=== PATIENT | female | born 1985 | race Caucasian/White ===

== ENCOUNTER 2016-05-24 19:17 | Inpatient (IN) | payer OTHER ==
[~2016-05-24] VITALS: Ht 172.7 cm; Wt 56.7 kg
[~2016-05-24 19:17] MED LIST: Bupropion Hcl PO; ETHI1TAB24 PO; SPIR50TA PO; TOPI100T11 PO; TRAZ-144 PO
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
[2016-05-26] MEDS ORDERED: LOPERAMIDE HCL 2 MG CAPSULE PO PRN ×2 (03:00)
[2016-05-26] MEDS ORDERED: MAG HYDROX/AL HYDROX/SIMETH 30 ML LIQUID UDC PO PRN (03:00)
[2016-05-26] MEDS ORDERED: BUPRENORPHINE HCL 2 MG TAB.SUBL SL PRN (03:00)
[2016-05-26] MEDS ORDERED: ACETAMINOPHEN 325 MG TABLET PO PRN (03:00)
[2016-05-26] MEDS ORDERED: MAGNESIUM HYDROXIDE 30 ML LIQUID UDC ONE (03:09)
[2016-05-26] MEDS ORDERED: BUPRENORPHINE HCL 2 MG TAB.SUBL SL ONE (03:09)
[2016-05-26] MEDS ORDERED: ONDANSETRON ODT 4 MG TAB.RAPDIS ONE (03:10)
[2016-05-26] MEDS ORDERED: IBUPROFEN 400 MG TABLET ONE ×2 (03:10→06:04)
[2016-05-26] MEDS: MAGNESIUM HYDROXIDE 30 ML LIQUID UDC PO PRN ×2 (03:16→22:59)
[2016-05-26] MEDS: CLONIDINE HCL 0.1 MG TABLET PO PRN (03:16)
[2016-05-26] MEDS: ONDANSETRON ODT 4 MG TAB.RAPDIS SL PRN (03:16)
--- NOTE | 2016-05-26 03:16 | NUR ---
PRN administration Patient complains of anxiety, constipation & nausea. Patient reported that her last bowel mvoement was a week ago. No episode of vomiting noted. Vitals WNL. PRN Clonidine, MOM, Zofran given as ordered. Will reassess for effectiveness of medicaiton
[2016-05-26] MEDS ORDERED: CLONIDINE HCL 0.1 MG TABLET ONE (03:20)
[2016-05-26 04:00] VITALS: BP 97/68
--- NOTE | 2016-05-26 04:16 | NUR ---
PRN Reassessment Patient verbalized improved nasuea and verbalized decrease in anxiety. PRn medication effective. Will continue to monitor bowel movement.
[2016-05-26 04:47] LABS: BASOPHILS % (AUTO) 0.5 % (0.0-2.0); EOSINOPHILS # (AUTO) 0.1 K/uL (0.0-0.7); EOSINOPHILS % (AUTO) 0.9 % (0.0-7.0); HEMATOCRIT 40.3 % (37.0-47.0); HEMOGLOBIN 14.2 g/dL (12.0-16.0); LYMPHOCYTES % (AUTO) 49.5 % (20.5-51.5); MEAN CORPUSCULAR HEMOGLOBIN 32.2 uug (27.0-31.0); MEAN CORPUSCULAR HGB CONC 35 g/dL (32.0-37.0); MEAN CORPUSCULAR VOLUME 91.4 fL (81.0-99.0); MONOCYTES # (AUTO) 0.5 K/uL (0.1-1.30); MONOCYTES % (AUTO) 6.2 % (0.0-11.0); NEUTROPHILS # (AUTO) 3.5 K/uL (1.8-8.9); NEUTROPHILS % (AUTO) 42.9 % (38.5-71.5); PLATELET COUNT (AUTO) 260 K/uL (150-450); RED BLOOD CELL COUNT(AUTO) 4.41 MIL/uL (4.20-5.40); RED CELL DISTRIBUTION WIDTH 12.1 % (11.5-14.5); WHITE BLOOD COUNT (AUTO) 8.1 K/uL (4.0-11.2)
[2016-05-26 05:00] LABS: ALBUMIN 3.4 g/dL (3.4-5.0); BILIRUBIN,TOTAL 0.2 mg/dL (0.2-1.0); CALCIUM 8.3 mg/dL (8.5-10.1); CREATININE 0.8 mg/dL (0.6-1.3); MAGNESIUM 1.3 mg/dL (1.8-2.4); POTASSIUM 3.2 mmol/L (3.5-5.1); TOTAL PROTEIN, SERUM 6.7 g/dL (6.4-8.2)
[2016-05-26 05:08] LABS: THYROID STIMULATING HORMONE 1.895 mIU/mL (0.358-3.740)
[2016-05-26 05:21] LABS: HIV-1 p24 ANTIGEN NON REACTIVE (NONREACTIVE); HIV-1/2 ANTIBODY NON REACTIVE (NONREACTIVE)
--- NOTE | 2016-05-26 06:00 | NUR ---
Urine collected Urine for drug screen collected. Pt able to void clear yellow urine freely with no problems.
[2016-05-26] MEDS ORDERED: METHOCARBAMOL 750 MG TABLET ONE (06:04)
[2016-05-26] MEDS: METHOCARBAMOL 750 MG TABLET PO PRN (06:12)
[2016-05-26] MEDS: IBUPROFEN 400 MG TABLET PO PRN ×2 (06:12→17:41)
--- NOTE | 2016-05-26 06:12 | NUR ---
PRN Administration Patient complaine of 7/10 jaw pain, body aches & mild headache. PRN Robaxin & Motrin given as ordered. Will continue to monitor.
[2016-05-26] MEDS ORDERED: SPIR50TA3 PO (06:34)
[2016-05-26] MEDS ORDERED: LISD20CA PO (06:34)
[2016-05-26] MEDS ORDERED: TOPI100T11 PO (06:34)
[2016-05-26 06:42] LABS: *AMPHETAMINE, URINE NEGATIVE (NEGATIVE); *BARBITURATE, URINE NEGATIVE (NEGATIVE); *CANNABINOID, URINE POSITIVE (NEGATIVE); *COCCAINE, URINE NEGATIVE (NEGATIVE); *OPIATE, URINE NEGATIVE (NEGATIVE); *PHENCYCLIDINE SCREEN,URINE NEGATIVE (NEGATIVE)
--- NOTE | 2016-05-26 07:12 | NUR ---
PRN Reassessment Patient verbalized slight relief from body aches and headache. Patient lying in bed and not in any s/s of distress. Will continue to monitor patient.
--- NOTE | 2016-05-26 07:45 | NUR ---
END of shit note: Patient is a 30 y/o female admitted for Opiate dependence. Patient is on a soft diet with multiple allergies noted. Full Code status. Patient was given PRn Clonidine for anxiety, MOM for constipation, Zofran for nausea, Motrin for headache & robaxin for body aches and were effective. During assessment, pt was having inconsistencies of reported allergies. Will followup with Dr. Rocha. Initial COWS is 10. Last COWS is 8. Pt remained stable and vitals WNL. Pt was having trouble sleeping and slept for 1 hour. Pt consumed 355ml of fluids. Voided 1x with no bowel movement noted. Safety precautions are in place. will continue to monitor.
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
[2016-05-26 08:00] VITALS: BP 112/66
[2016-05-26] MEDS: MULTIVITAMINS,THERAPEUTIC TABLET PO SCH (08:45)
[2016-05-26] MEDS ORDERED: LORAZEPAM 1 MG TABLET PO PRN ×2 (10:15)
[2016-05-26] MEDS ORDERED: LORAZEPAM 2 MG/1 ML VIAL IM PRN (10:15)
[2016-05-26] MEDS ORDERED: POTASSIUM CHLORIDE 10 MEQ CAPSULE.SA PO ONE (10:15)
[2016-05-26 12:00] VITALS: BP 109/69
[2016-05-26] MEDS: LORAZEPAM 1 MG TABLET PO SCH ×3 (12:50→21:11)
[2016-05-26] MEDS: BUPRENORPHINE HCL 2 MG TAB.SUBL SL SCH ×3 (12:51→21:12)
[2016-05-26] MEDS: TOPIRAMATE 100 MG TABLET PO SCH (12:51)
[2016-05-26] MEDS: buPROPion XL 150 MG TAB.SR.24H PO SCH (12:51)
[2016-05-26] MEDS ORDERED: MAGNESIUM OXIDE 400 MG TABLET PO ONE (14:30)
[2016-05-26] MEDS ORDERED: ASPIRIN/ACETAMINOPHEN/CAFFEINE TABLET PO PRN (15:45)
[2016-05-26 16:00] VITALS: BP 124/76
[2016-05-26] MEDS ORDERED: PATIENT MAY USE OWN MED- MD OK PO SCH (17:00)
[2016-05-26] MEDS: SPIRONOLACTONE 50 MG TABLET PO SCH (17:36)
--- NOTE | 2016-05-26 17:41 | NUR ---
PRN MEDICATION Pt c/o toothache/ jaw pain rating it 5/10 requested something for relief, non-pharmacological techniques interventions provided x3 and were not effective. PRN Motrin 400mg administered PO, educated pt about s/e of medication and when to contact nurse. all needs met, all safety measures in place, will continue to monitor.
[2016-05-26] MEDS ORDERED: TRAZODONE 50 MG TABLET PO SCH (18:00)
--- NOTE | 2016-05-26 18:41 | NUR ---
PRN REASSESSMENT Medication effective, pt reported a decrease in pain to 1/10, all needs met all safety measures in place.
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
[2016-05-26 19:31] LABS: *URINE HCG, QUAL NEGATIVE (NEGATIVE)
[2016-05-26 20:00] VITALS: BP 127/82
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
[2016-05-26] MEDS: DICYCLOMINE HCL 20 MG TABLET PO PRN (21:11)
--- NOTE | 2016-05-26 21:11 | NUR ---
PRN Bentyl Pt complains of stomach cramps. Administered PRN Bentyl as ordered. Will continue to monitor.
[2016-05-26] MEDS: KETOROLAC TROMETHAMINE 30 MG INJ IM PRN (22:59)
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
[2016-05-27] VITALS: BP 117/84
--- NOTE | 2016-05-27 | NUR ---
Reassessment: Pt states that her jaw pain is now 3/10. PRN Toradol effective AEB decrease in pain from 8/10 to 3/10. Will continue to monitor.
[2016-05-27 04:00] VITALS: BP 122/79
[2016-05-27] MEDS: IBUPROFEN 400 MG TABLET PO PRN (04:44)
--- NOTE | 2016-05-27 04:44 | NUR ---
PRN Motrin: Pt complains of jaw pain. Pt rates pain 5/10. Administered PRN Motrin as ordered. Will continue to monitor.
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
--- NOTE | 2016-05-27 07:45 | NUR ---
START OF SHIFT NOTE: Report received from trains dispatcher supervisor nurse. Pt is a 30 yo female admitted on 05/26/16 for ETOH, opiates, and benzodiazepines dependence. Pt is on a 5 day Subutex and 5 day Valium tapers. Tolerating well. Pt is alert and oriented X4. Color good, skin warm and dry. Respirations even and unlabored. Safety precautions observed. calll= light within reach. Will continue to monitor.
[2016-05-27 08:00] VITALS: BP 124/88
[2016-05-27 08:19] LABS: CALCIUM 9.2 mg/dL (8.5-10.1); CREATININE 0.8 mg/dL (0.6-1.3); POTASSIUM 4.2 mmol/L (3.5-5.1)
[2016-05-27] MEDS ORDERED: TUBERCULIN,PURIF.PROT.DERIV. 5 TU/0.1 ML TEST ID ONE (09:00)
--- NOTE | 2016-05-27 09:00 | NUR ---
VSS CIWA 9 COWS 8 c/o anxiety, sweating and tremors. TB test administered LFA
[2016-05-27] MEDS: LORAZEPAM 1 MG TABLET PO SCH ×3 (09:26→21:12)
[2016-05-27] MEDS: buPROPion XL 150 MG TAB.SR.24H PO SCH (09:26)
[2016-05-27] MEDS: GABAPENTIN 300 MG CAPSULE PO SCH ×3 (09:26→21:12)
[2016-05-27] MEDS: FOLIC ACID 1 MG TABLET PO SCH (09:26)
[2016-05-27] MEDS: MULTIVITAMINS,THERAPEUTIC TABLET PO SCH ×2 (09:26→09:36)
[2016-05-27] MEDS: TOPIRAMATE 100 MG TABLET PO SCH (09:27)
[2016-05-27] MEDS: THIAMINE HCL 100 MG TABLET PO SCH (09:27)
[2016-05-27] MEDS: BUPRENORPHINE HCL 2 MG TAB.SUBL SL SCH ×3 (09:27→21:13)
[2016-05-27] MEDS: PATIENT MAY USE OWN MED- MD OK PO SCH (09:28)
[2016-05-27] MEDS: SPIRONOLACTONE 50 MG TABLET PO SCH ×2 (09:31→16:56)
[2016-05-27 12:57] VITALS: BP 116/80
[2016-05-27] MEDS: KETOROLAC TROMETHAMINE 30 MG INJ IM PRN (15:09)
--- NOTE | 2016-05-27 15:09 | NUR ---
VSS Pt c/o jaw pain / Toradol 30mg IM prn given
--- NOTE | 2016-05-27 16:00 | NUR ---
Pt states jaw pain improved after Toradol prn. Pain 4/10
[2016-05-27] MEDS: METHOCARBAMOL 750 MG TABLET PO PRN (17:00)
--- NOTE | 2016-05-27 17:00 | NUR ---
Robaxin 750mg po prn given
--- NOTE | 2016-05-27 18:00 | NUR ---
Pt feels improved after Robaxin prn
[2016-05-27 18:39] VITALS: BP 116/80
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
[2016-05-27 20:00] VITALS: BP 133/90
--- NOTE | 2016-05-27 20:00 | NUR ---
Start of Shift Patient is a 30-year old, female, admitted for ETOH, Opiates, and Benzodiazepines dependence. Pt is on a 5 day Subutex and 5 day Valium tapers, started 05/26/2016. Patient is tolerating tapers well. Pt is AAOx4, no SOB nor anxiety noted. Pt is ambulatory with steady gait and with no skin issues. Fall, universal and safety prec implemented. Call light within reach. Kept pt warm, dry and comfortable. COWS=6, CIWA=4. Will monitor.
[2016-05-28] VITALS (7 sets, daily range): BP systolic 107–148; BP diastolic 71–112
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
--- NOTE | 2016-05-28 07:18 | NUR ---
End of Shift Patient is a 30-year old, female, admitted for ETOH, Opiates, and Benzodiazepines dependence. Pt is on a 5 day Subutex and 5 day Valium tapers, started 05/26/2016. Patient is tolerating tapers well. Pt is AAOx4, no SOB nor anxiety noted. Pt is ambulatory with steady gait and with no skin issues. Fall, universal and safety prec implemented. Call light within reach. Kept pt warm, dry and comfortable. COWS=4, CIWA=3, slept for 5 hours. Endorsed to AM shift nurse for continuity of care.
[2016-05-28] MEDS ORDERED: FAMOTIDINE 20 MG TABLET PO SCH (09:00)
[2016-05-28] MEDS: MULTIVITAMINS,THERAPEUTIC TABLET PO SCH ×2 (09:00→09:11)
[2016-05-28] MEDS ORDERED: BUPRENORPHINE HCL 2 MG TAB.SUBL SL SCH (09:00)
[2016-05-28] MEDS: PATIENT MAY USE OWN MED- MD OK PO SCH (09:10)
[2016-05-28] MEDS: TOPIRAMATE 100 MG TABLET PO SCH (09:11)
[2016-05-28] MEDS: THIAMINE HCL 100 MG TABLET PO SCH (09:11)
[2016-05-28] MEDS: buPROPion XL 150 MG TAB.SR.24H PO SCH (09:11)
[2016-05-28] MEDS: SPIRONOLACTONE 50 MG TABLET PO SCH ×2 (09:11→16:00)
[2016-05-28] MEDS: GABAPENTIN 300 MG CAPSULE PO SCH ×2 (09:11→16:00)
[2016-05-28] MEDS: FOLIC ACID 1 MG TABLET PO SCH (09:11)
[2016-05-28] MEDS: LORAZEPAM 1 MG TABLET PO SCH ×4 (09:17→20:29)
[2016-05-28] MEDS: ONDANSETRON ODT 4 MG TAB.RAPDIS SL PRN (12:27)
[2016-05-28] MEDS: KETOROLAC TROMETHAMINE 30 MG INJ IM PRN (12:27)
[2016-05-28] MEDS ORDERED: ONDANSETRON 4 MG/2 ML VIAL IV PRN (12:45)
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
[2016-05-28] MEDS ORDERED: PNEUMOCOCCAL 23-VAL P-SAC VAC 0.5 ML VIAL IM ONE (13:00)
--- NOTE | 2016-05-28 13:00 | NUR ---
PNA Vaccine Non-Administration Pt refused the PNA vaccine.
--- NOTE | 2016-05-28 13:30 | NUR ---
Reassessment Pt is in room asleep with a nap with HOB semi-fowlers; no non-verbal clues of nausea or pain present at this time so Toradol and Zofran is effective. Will cont. to monitor the pt.
[2016-05-28] MEDS: PANTOPRAZOLE SODIUM 40 MG VIAL IV SCH (14:26)
[2016-05-28] MEDS: IV D5 1/2 NS 1000 ML 1,000 ML IV SCH ×2 (14:33→21:05)
[2016-05-28] MEDS: DICYCLOMINE HCL 20 MG TABLET PO PRN (16:00)
[2016-05-28] MEDS: BUPRENORPHINE HCL 2 MG TAB.SUBL SL SCH ×2 (16:00→20:29)
[2016-05-28] MEDS: DOCUSATE SODIUM 250 MG CAPSULE PO PRN (16:00)
--- NOTE | 2016-05-28 16:30 | NUR ---
V/S-Elevated BP 1600H V/S: T. 98.1 HR 87 RR 18 BP 148/112 SpO2 98% RA 0/10 pain COWS 5 CIWA 5; Scheduled medications given and reassessment at 1630 of BP 119/80 and HR 63 after medication administration. Will cont. to monitor the pt.
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
[2016-05-28] MEDS: MIRALAX 17 GM POWD.PACK PO PRN (20:59)
--- NOTE | 2016-05-28 20:59 | NUR ---
PRN Administration Pt reports constipation, requested aid. Miralax 17 gm PRN administered. Pt reports itchiness and discomfort in eyes. Naphcon-A Opht drops administered. Safety measures in place, will continue to monitor.
[2016-05-28] MEDS ORDERED: GABAPENTIN 300 MG CAPSULE PO SCH (21:00)
[2016-05-28] MEDS: NAPHAZOLINE/PHENIR OPHT DROP 15 ML BOTTLE EACHEYE PRN (21:01)
--- NOTE | 2016-05-28 21:05 | NUR ---
IVF New bag of D5 1/2 NS started, running at 125 cc/hr. IV site intact, patent/flushing well. Safety measures in place, Will continue to monitor.
--- NOTE | 2016-05-28 22:00 | NUR ---
PRN Upon reassessment, no reports of bowel movement. will continue to monitor effectiveness of Miralax. Pt states relief in itchiness in eyes. eye drops effective. Safety measures in place, Will continue to monitor. Addendum: 05/28/16 at 2342 by LYUBOV SERVIN RN PRN REASSESSMENT
[2016-05-29] VITALS: BP 111/69
--- NOTE | 2016-05-29 | NUR ---
Vital Signs BP 111/69, Pulse 81, SpO2 98%, respirations 14, temp 97.7, no reports of pain. IRVIN/CIWA deferred d/t pt sleeping, to assess while pt is awake as ordered. Safety measures in place, Will continue to monitor.
[2016-05-29] MEDS: KETOROLAC TROMETHAMINE 30 MG INJ IM PRN ×2 (01:55→08:51)
--- NOTE | 2016-05-29 01:55 | NUR ---
PRN Administration Upon awakening, pt reported aching pain in right lower jaw rated 9/10. Pt requested relief. Toradol injection 30mg/1ml administered. Safety measures in place, will continue to monitor.
--- NOTE | 2016-05-29 02:55 | NUR ---
PRN Reassessment Upon reassessment, of Toradol, pt is sleeping, no verbal cues of pain verbalized/noted. Safety measures in place, Will continue to monitor.
[2016-05-29 04:00] VITALS: BP 94/67
--- NOTE | 2016-05-29 04:00 | NUR ---
Vital Signs BP 94/67, Pulse 74, SpO2 97%, respirations 14, temp 98, no reports of pain. COWS/CIWA deferred d/t pt sleeping, to assess while pt is awake as ordered. Safety measures in place, Will continue to monitor.
[2016-05-29] MEDS: IV D5 1/2 NS 1000 ML 1,000 ML IV SCH (05:06)
--- NOTE | 2016-05-29 05:06 | NUR ---
IVF New bag of D5 1/2 NS started, running at 125 cc/hr. IV site intact, patent/flushing well. Safety measures in place, Will continue to monitor.
[2016-05-29 05:22] LABS: HEPATITIS B CORE AB, IgM Negative (Negative); HEPATITIS B SURFACE AG Negative (Negative)
[2016-05-29] MEDS: METHOCARBAMOL 750 MG TABLET PO PRN (05:45)
--- NOTE | 2016-05-29 05:45 | NUR ---
PRN Robaxin & Reassessment of Toradol Upon awakening, pt reported muscle aches, requested relief. Robaxin 750mg PRN administered. Pt verbalizes pain in jaw 3/10 and subsiding pain - Toradol effective. Safety measures in place, will continue to monitor.
--- NOTE | 2016-05-29 06:45 | NUR ---
PRN Robaxin Reassessment Upon reassessment of Robaxin, pt states a decrease in muscle aches. Safety measures in place, Will continue to monitor.
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
[2016-05-29 08:00] VITALS: BP 110/68
[2016-05-29] MEDS: BUPRENORPHINE HCL 2 MG TAB.SUBL SL SCH ×3 (08:32→20:58)
[2016-05-29] MEDS: THIAMINE HCL 100 MG TABLET PO SCH (08:32)
[2016-05-29] MEDS: PATIENT MAY USE OWN MED- MD OK PO SCH (08:32)
[2016-05-29] MEDS: SPIRONOLACTONE 50 MG TABLET PO SCH ×2 (08:32→16:06)
[2016-05-29] MEDS: buPROPion XL 150 MG TAB.SR.24H PO SCH (08:32)
[2016-05-29] MEDS: GABAPENTIN 300 MG CAPSULE PO SCH ×3 (08:32→20:58)
[2016-05-29] MEDS: MULTIVITAMINS,THERAPEUTIC TABLET PO SCH ×2 (08:33→08:34)
[2016-05-29] MEDS: TOPIRAMATE 100 MG TABLET PO SCH (08:33)
[2016-05-29] MEDS: LORAZEPAM 1 MG TABLET PO SCH ×3 (08:33→20:58)
[2016-05-29] MEDS: PANTOPRAZOLE SODIUM 40 MG VIAL IV SCH (08:33)
[2016-05-29] MEDS: FOLIC ACID 1 MG TABLET PO SCH (08:33)
[2016-05-29] MEDS: NAPHAZOLINE/PHENIR OPHT DROP 15 ML BOTTLE EACHEYE PRN (08:44)
[2016-05-29] MEDS: DOCUSATE SODIUM 250 MG CAPSULE PO PRN ×2 (08:51→16:14)
[2016-05-29] MEDS: CLONIDINE HCL 0.1 MG TABLET PO PRN (08:51)
--- NOTE | 2016-05-29 08:55 | NUR ---
PRN Medication Administration Pt c/o burning eyes, jaw and generalized pain 09/27 and is very anxious with restlessness, crying, irritability, agitation and pacing, HR 108; PRN Naphcon-A eye gtts, Toradol 30mg IM, and Clonidine 0.1mg given with 0900H scheduled medications. Will reassess in 1H. Addendum: 05/29/16 at 1659 by CHRISTEL MILES RN PRN Colace 250mg given also since pt states that she has not had a BM in 3 days.
--- NOTE | 2016-05-29 10:00 | NUR ---
Reassessment Pt is in room getting getting ready to take a shower, decreased anxiety and agitations with no crying present and pt denies pain 0/10 and no burning and itchiness in OU; PRN Naphcon-A, Toradol and Clonidine are effective. Will cont. to monitor the pt.
[2016-05-29 12:00] VITALS: BP 131/77
[2016-05-29] MEDS ORDERED: BUPRENORPHINE HCL 2 MG TAB.SUBL SL ONE (13:00)
[2016-05-29 16:00] VITALS: BP 118/87
[2016-05-29] MEDS: MIRALAX 17 GM POWD.PACK PO PRN (16:14)
--- NOTE | 2016-05-29 16:18 | NUR ---
PRN Medication Administration Pt c/o no BM in more than 3 days; PRN Miralax with another dose of PRN Colace 250mg given as ordered. Will cont. to monitor the pt.
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
[2016-05-29 20:00] VITALS: BP 119/85
--- NOTE | 2016-05-29 20:00 | NUR ---
Start of Shift Pt is a 30 year old female admitted for Opiate/Benzo/ETOH dependence, placed on 5 day Ativan and 5 day Subutex taper. Allergies to PCN and Trazodone, soft diet, full code. PMH: ADHD, anxiety, depression, PTSD, jaw fracture and polycystic ovarian syndrome. Pt has 22g SL in left forearm - site intact patent/flushing well. IVF D5 1/2 NS running at 125 cc/hr. Upon assessment, pt reports anxiety, flushing/chills, muscle/joint aches, skin flushed/clammy, respirations unlabored, denies SOB/chest pain. Will administered medications. BP 119/85, pulse 63, SpO2 100%, respirations 14, temp 98. Safety measures in place, will continue to monitor.
--- NOTE | 2016-05-29 20:30 | NUR ---
IVF completed, removed IV from left forearm, site cleansed and bandaged. Pt needs met, safety measures in place, will continue to monitor.
[2016-05-30] VITALS: BP 121/73
[2016-05-30] MEDS: CALCIUM CARBONATE 500 MG TAB.CHEW PO PRN (01:17)
--- NOTE | 2016-05-30 01:17 | NUR ---
PRN Administration Tums 500mg PRN administered for stomach upset Robaxin 750mg PRN administered for reports of muscle aches. Safety measures in place, Will continue to monitor.
[2016-05-30] MEDS: METHOCARBAMOL 750 MG TABLET PO PRN ×2 (01:20→14:28)
--- NOTE | 2016-05-30 02:45 | NUR ---
Behavioral Note During shift, while doing hourly rounds, Pt has been noted to be in room in bed with lights on, TV on with sound on full, reading and writing in notebook. Upon offering sleeping AID, pt reported she did not want Benadryl and only wanted Toradol for pain, which was administered. Pt continuously REFUSED Benadryl risk and benefits explained, medication offered 3 times. Non-pharmacological methods of turning TV off, turning lights off encouraged to pt. However, pt continued to behave in same manner with keeping lights on and TV on.
[2016-05-30] MEDS: KETOROLAC TROMETHAMINE 30 MG INJ IM PRN ×2 (02:55→20:40)
--- NOTE | 2016-05-30 02:55 | NUR ---
PRN Reassessment/Administration Pt reports relief of stomach upset. Reports she cannot fall asleep d/t the aching/pulling pain 9/10 in her shoulders and knees. Toradol injection 30mg/1ml PRN administered. Safety measures in place, Will continue to monitor.
[2016-05-30 04:00] VITALS: BP 109/78
--- NOTE | 2016-05-30 04:00 | NUR ---
Vital Signs BP 109/78, pulse 87, respirations 14, SpO2 100%, temp 97.9, no reports of pain. COWS/CIWA assessment deferred d/t pt sleeping, to assess while pt is awake as ordered. Safety measures in place, Will continue to monitor.
[2016-05-30] MEDS: CLONIDINE HCL 0.1 MG TABLET PO PRN ×2 (05:46→23:08)
--- NOTE | 2016-05-30 05:46 | NUR ---
Behavioral Note At 0545, Pt reported I have been trying to sleep and I feel anxious, I cant fall asleep. Explained to pt that Benadryl cannot be administered at this time due to the morning hour. In response, Pt reported that it was not offered to her, even though Benadryl was offered x3 with risks/benefits explained. Clonidine 0.1mg PRN administered for Anxiety. Pt refuses to turn off lights and keeps the TV on. Pt continues to behave in the same manner.
--- NOTE | 2016-05-30 06:46 | NUR ---
Clonidine Reassessment Pt is in bed with eyes closed, no anxiety noted. Safety measures in place, Will continue to monitor.
[2016-05-30] MEDS ORDERED: PANTOPRAZOLE SODIUM 40 MG TABLET.DR PO SCH (07:00)
--- NOTE | 2016-05-30 07:00 | NUR ---
End of Shift Pt is a 30 year old female admitted for Opiate/Benzo/ETOH dependence, placed on 5 day Ativan and 5 day Subutex taper. Allergies to PCN and Trazodone, soft diet, full code. PMH: ADHD, anxiety, depression, PTSD, jaw fracture and polycystic ovarian syndrome. During shift pt presented with anxiety, flushing/chills, muscle/joint aches, skin flushed/clammy scheduled taper medications administered, COWS 5 and CIWA 4. IVF completed, removed IV from left forearm site cleaned and bandaged. At 0117 Tums 500mg PRN administered for stomach upset, effective. Administered Robaxin 750mg PRN for muscle aches ineffective. Pt reported she was unable fall asleep d/t the aching/pulling pain 9/10 in her shoulders and knees. Toradol 30mg/1ml PRN administered, effective for pain. Clonidine administered for anxiety, noted in behavioral note. Pt slept for 5 hours, intake of 1700 ml PO and void x2. VS stable, Safety measures in place, Endorsed to day shift nurse.
--- NOTE | 2016-05-30 07:45 | NUR ---
START OF SHIFT NOTE Received report from night nurse, a 30 year old female admitted for Opiate/Benzo/ETOH dependence. Allergies to PCN and Trazodone, soft diet, full code. Pt reported PMH: ADHD, anxiety, depression, PTSD, jaw fracture and polycystic ovarian syndrome. Pt cont on 5 day Ativan and 5 day Subutex taper. Pt received Tums 500mg for stomach upset,Robaxin 750mg PRN for muscle aches ineffective per night nurse then administered Toradol 30mg/1ml PRN administered, effective for pain. Clonidine for anxiety,effective per night nurse. Pt slept for 5 hours, Last CIWA-4, COWS-5. Received pt alert awake oriented x4 in stable condition. Pt came to nursing station and asked for her contact lenses. Contact lenses provided to the pt. Pt did not report any pain or discomfort at this time. Safety measures in place. Will cont to provide safe and hazard free environment.
[2016-05-30 08:00] VITALS: BP 113/77
[2016-05-30] MEDS: LORAZEPAM 1 MG TABLET PO SCH ×2 (08:48→20:39)
[2016-05-30] MEDS: buPROPion XL 150 MG TAB.SR.24H PO SCH (08:48)
[2016-05-30] MEDS: TOPIRAMATE 100 MG TABLET PO SCH (08:48)
[2016-05-30] MEDS: THIAMINE HCL 100 MG TABLET PO SCH (08:48)
[2016-05-30] MEDS: BUPRENORPHINE HCL 2 MG TAB.SUBL SL SCH ×2 (08:48→20:38)
[2016-05-30] MEDS: MULTIVITAMINS,THERAPEUTIC TABLET PO SCH ×2 (08:48→09:40)
[2016-05-30] MEDS: GABAPENTIN 300 MG CAPSULE PO SCH ×2 (08:48→14:19)
[2016-05-30] MEDS: FOLIC ACID 1 MG TABLET PO SCH (08:48)
[2016-05-30] MEDS: SPIRONOLACTONE 50 MG TABLET PO SCH ×2 (08:58→16:31)
[2016-05-30] MEDS: PATIENT MAY USE OWN MED- MD OK PO SCH (08:59)
[2016-05-30] MEDS: PANTOPRAZOLE SODIUM 40 MG TABLET.DR PO SCH (10:01)
[2016-05-30 12:00] VITALS: BP 102/74
[2016-05-30] MEDS: DICYCLOMINE HCL 20 MG TABLET PO PRN (14:28)
--- NOTE | 2016-05-30 14:28 | NUR ---
PRN MEDS Pt is c/o of stomach cramps/muscle aches 5/10, non pharmacological intervention ineffective. Administered PRN Bentyl 20mg Po 1 tab/Robaxin 750mg Po 1 tab as ordered. Will cont to monitor and reassess the pt.
--- NOTE | 2016-05-30 15:28 | NUR ---
REASSESSMENT upon reassessment pt reported medication effective stomach cramps subside.
--- NOTE | 2016-05-30 15:35 | NUR ---
D/C 1:1 Pt's 1:1 supervision R/T safety precautions was discontinued after reassessing the pt, Pt stated " I am okay and I can walk fine". Pt ambulates independently with steady gait. Pt denies any feeling of fear. aware.
[2016-05-30 16:00] VITALS: BP 110/68
--- NOTE | 2016-05-30 16:13 | NUR ---
CONSULT ORDER PLACED FOR SOFT FOOD PREFERENCES, RECENT JAW FRACTURE/DISLOCATION SPOKE TO THE PATIENT, PT STATE THAT HAVING DIFFICULTIES WITH CURRENT TEXTURE, OFFER MSOFT(CHOPPED),PATIENT AGREES, SPOKE TO THE NURSE AND REC DOWNGRADE DIET TO MSOFT FOOD PREFERENCES OBTAINED , ASSIST PATIENT ON MENU SELECTION PT WAS RECEIVING BOOST TID, STATES DISLIKE BOOST, REC D/C TWO AND WILL SEND 1 BOOST WITH DINNER. WILL MONITOR PO INTAKE Addendum: 05/30/16 at [address] Amended: Links added.
--- NOTE | 2016-05-30 19:00 | NUR ---
PT COMMUNICATION Pt reported having x4 episode of diarrhea, offered Imodium pt refused states "I do not want to mess with my stomach". Risk and benefits explained. Safety measures in place. Pt in stable condition alert oriented x4.
--- NOTE | 2016-05-30 19:10 | NUR ---
EMESIS x1 Pt observed with brushing teeth and tongue and then observed with vomiting, offered PRN Zofran, pt refused. Endorsed to night nurse to follow up. Safety measures in place.
--- NOTE | 2016-05-30 19:16 | NUR ---
END OF SHIFT NOTE Gave report to night nurse, 30 year old female admitted for Opiate/Benzo/ETOH dependence. Allergies to PCN and Trazodone, soft diet, full code. Pt reported PMH: ADHD, anxiety, depression, PTSD, jaw fracture and polycystic ovarian syndrome. Pt cont on 5 day Ativan and 5 day Subutex taper. Pt received PRN Robaxin and Bentyl with effectiveness. Pt attended groups and activities. Pt was seen by advertising assistant and diet change from soft diet to mechanical soft diet. Vital signs remain stable. Last CIWA 4 COWS 5. Pt reports with stuffy nose,agitation, anxiety, and chills. Fall and seizure precautions in place.pt endorsed to night nurse in stable condition.
--- NOTE | 2016-05-30 19:35 | NUR ---
Start of Shift Note: Report received from day shift nurse. Pt is a 30 yo female admitted on 05/26/16 for medically-supervised withdrawal from ETOH, opiates, and benzodiazepines. Pt reports drinking 1500mL vodka daily for 2 days, using 2gm IV heroin daily for one week, and Ativan 1mg daily. Pt has completed a 5-day Ativan taper and in on the last day of a 5-day Subutex taper. Last day shift COWS=5, CIWA=4. Pt is on a mechanical soft diet. Pt reports allergy to PCN and trazodone. Pt reports med hx: ADHD, anxiety, depression, PTSD, jaw fx s/p repair, and PCOS. Pt is at the nurses station at start of shift requesting medications. Pt attended half of one H&I group today. Pt noted to be resistant to non-pharmacological measures to alleviate anxiety and discomfort. Pt's complaints are out of proportion to objective s/s of withdrawal. Will reinforce teaching of coping skills. Will also reinforce importance of group attendance. Will continue to monitor.
[2016-05-30 20:00] VITALS: BP 107/68
[2016-05-30] MEDS: ONDANSETRON ODT 4 MG TAB.RAPDIS SL PRN (20:40)
--- NOTE | 2016-05-30 20:40 | NUR ---
PRN Toradol and PRN Zofran: Pt c/o severe jaw pain and rates pain 8/10. Pt noted to be able to eat almonds and a sandwich without difficulty. Administered PRN Toradol IM as ordered. Pt c/o nausea. Pt reports emesis x1 earlier in the day and refused medication at that time. Administered PRN Zofran as ordered. Will continue to monitor.
[2016-05-30] MEDS ORDERED: GABAPENTIN 300 MG CAPSULE PO SCH (21:00)
--- NOTE | 2016-05-30 21:40 | NUR ---
Reassessment: Pt reports that she is no longer nauseous and that her jaw pain is manageable. PRN Zofran and PRN Toradol effective. Encouraged fluids, crackers and other light foods to prevent recurrent episodes. Pt verbalizes understanding. Will continue to monitor.
[2016-05-30] MEDS: diphenhydrAMINE 50 MG CAPSULE PO PRN (23:08)
--- NOTE | 2016-05-30 23:08 | NUR ---
PRN Benadryl and Clonidine: Pt reports anxiety due to inability to sleep. Pt stated she also lost a contact lens which is making her uneasy. Pt requested medication to "calm her down" and help her go to sleep. BP 119/67, HR 88. Clonidine PRN given for anxiety and Benadryl PRN given for sleep. Will continue to monitor.
[2016-05-31] VITALS: BP 119/62
--- NOTE | 2016-05-31 00:10 | NUR ---
Reassessment: Pt is in bed with eyes closed. Respirations are even and unlabored. No s/s of acute distress noted. PRN Clonidine and PRN Benadryl effective AEB pt's ability to rest. Will continue to monitor.
--- NOTE | 2016-05-31 04:00 | NUR ---
Vitals Refused: Pt refuses ordered 04:00 v/s assessment. Pt educated on risks/benefits but still refuses. COWS/CIWA deferred at this time. All safety precautions are in place. Will continue to monitor. Addendum: 05/31/16 at 0518 by MICHAEL CHONG RN Amended: Links added.
--- NOTE | 2016-05-31 06:58 | NUR ---
End of Shift Note: Pt is a 30 yo female admitted to [facility] on 05/26/16 for medically-supervised withdrawal from ETOH, opiates, and benzodiazepines. Pt reports drinking 1500mL vodka daily for 2 days, using 2gm IV heroin daily for one week, and Ativan 1mg daily. Pt has completed a 5-day Ativan taper and has one remaining dose of a 5-day Subutex taper. Scheduled medication regime effectively managed s/s of withdrawal this shift, and COWS/CIWA scores decreased from 6/7 to 3/2. PRN Clonidine was given for anxiety and PRN Zofran for nausea. PRN Toradol was given for jaw pain and PRN Benadryl was given for insomnia. Pt is on a mechanical soft diet. Pt reports allergy to PCN and Trazodone. Pt reports med hx: ADHD, anxiety, depression, PTSD, jaw fx s/p repair, and PCOS. V/S stable throughout shift. Total fluid intake this shift: 855 ml; output: urine x 2 and BM x 0. Pt currently in bed and slept 10 hours this shift. Pt endorsed to day shift nurse.
[2016-05-31] MEDS: PANTOPRAZOLE SODIUM 40 MG TABLET.DR PO SCH (07:20)
--- NOTE | 2016-05-31 07:47 | NUR ---
BEGINNING OF SHIFT Patient endorsement report received from cuff stitcher nurse, all pertinent information discussed. Patient is a 30 year old female, full code, with no known allergies, On a soft diet. Patient with past medical history of: ADHD, anxiety, depression, PTSD, polycystic ovarian syndrome, Jaw fracture and Jaw surgeries (December). Patient with substance use history of: heroin IV 2 grams daily one week, ETOH 2-750ml of vodka daily for 2 days, Ativan 1mg/daily, Marijuana unknown amount. Patient was placed on a 5 day Ativan and Subutex taper as ordered. Patient is on day 5 of Subutex and completed Ativan taper. As per cuff stitcher patient received PRN: Toradol, Zofran, clonidine, and Benadryl, patient slept for 10 hours. Patient with last cow score of: 3 and ciwa score of: 2. Patient received awake, alert and oriented x4, educated patient regarding plan of care for the day and medication regimen with good verbal understanding. safety measures in place, call light kept with in reach, will continue to monitor.
[2016-05-31 08:29] VITALS: BP 136/97
[2016-05-31] MEDS: FOLIC ACID 1 MG TABLET PO SCH (08:31)
[2016-05-31] MEDS: buPROPion XL 150 MG TAB.SR.24H PO SCH (08:31)
[2016-05-31] MEDS: MULTIVITAMINS,THERAPEUTIC TABLET PO SCH ×2 (08:31)
[2016-05-31] MEDS: TOPIRAMATE 100 MG TABLET PO SCH (08:31)
[2016-05-31] MEDS: THIAMINE HCL 100 MG TABLET PO SCH (08:31)
[2016-05-31] MEDS: PATIENT MAY USE OWN MED- MD OK PO SCH (08:32)
[2016-05-31] MEDS: SPIRONOLACTONE 50 MG TABLET PO SCH ×2 (08:32→16:33)
[2016-05-31] MEDS: KETOROLAC TROMETHAMINE 30 MG INJ IM PRN ×2 (08:33→22:14)
--- NOTE | 2016-05-31 08:37 | NUR ---
PRN TORADOL Patient c/o pain 8/10 to jaw, provided with non pharmacological intervention with no relief, patient administered Toradol injection as ordered, will monitor effectiveness.
[2016-05-31] MEDS ORDERED: GABAPENTIN 300 MG CAPSULE PO SCH (09:00)
[2016-05-31] MEDS ORDERED: BUPRENORPHINE HCL 2 MG TAB.SUBL SL SCH (09:00)
--- NOTE | 2016-05-31 09:37 | NUR ---
TORADOL REASSESSMENT Patient reports medication with relief, current pain level 0/10, will continue to monitor.
[2016-05-31] MEDS: METHOCARBAMOL 750 MG TABLET PO PRN (14:32)
[2016-05-31] MEDS: DICYCLOMINE HCL 20 MG TABLET PO SCH ×2 (14:32→20:23)
[2016-05-31] MEDS: ONDANSETRON ODT 4 MG TAB.RAPDIS SL PRN ×2 (14:32→20:47)
[2016-05-31] MEDS: GABAPENTIN 300 MG CAPSULE PO SCH ×2 (14:32→20:23)
[2016-05-31] MEDS: IBUPROFEN 400 MG TABLET PO PRN (14:32)
--- NOTE | 2016-05-31 14:32 | NUR ---
PRN MOTRIN/ZOFRAN/ROBAXIN Patient reports increase in nausea, no vomiting noted. patient also reports pain to jaw area 6/10 and muscle aches. Patient administered Motrin/Zofran and Robaxin as ordered, will monitor effectiveness.
[2016-05-31 14:35] VITALS: BP 98/71
[2016-05-31] MEDS ORDERED: BUPRENORPHINE HCL 2 MG TAB.SUBL SL ONE (15:00)
--- NOTE | 2016-05-31 15:32 | NUR ---
MOTRIN/ZOFRAN/ROBAXIN REASSESSMENT Patient reports medication effective, current pain level 0/10, decrease in nausea and no complains of muscle aches, will continue to monitor closely.
[2016-05-31 17:19] VITALS: BP 113/79
--- NOTE | 2016-05-31 19:13 | NUR ---
END OF SHIFT Patient alert and oriented x4, vital signs were stable during shift, patient compliant with therapeutic plan of care. Patient with admitting Dx: opiate/etoh dependence, 0900 patient presented with: c/o chills, mild bone and joint aches, mild anxiety and mild agitation with cow score of: 3 and ciwa score of: 2; 1300 assessment patient presented with: c/o chills, mild anxiety and mild agitation with cow score of: 2 and ciwa score of: 2; 1700 assessment patient presented with: c/o chills, and mild anxiety with cow score eof: 2 and ciwa score of: 2. During shift patient was administered: one time dose of Subutex 2mg sl as per MD orders, during which patient presented with: at 1436: c/o chills, mild bone and joint aches, nausea and mild anxiety with cow score of: 5. Patient was administered PRN: Toradol injection at 0837, Motrin as ordered, Zofran as ordered, and Robaxin as ordered at 1432, all PRN medications administered were effective. Patient encouraged to attend group therapies/sessions to learn new coping skills to prevent relapse, noted attending and participating, denies SI/HI. Patient encouraged adequate PO fluid intake as tolerated. Safety measures in place. will continue to monitor. safety measures in place.
--- NOTE | 2016-05-31 19:14 | NUR ---
Start of shift note Received report from day shift nurse. Pt is a 30 yo female, A+Ox4, presenting to [facility] for Opiate/ETOH/Benzo/Marijuana dependence. Pt has Allergies to PCN and Trazodone. Pt is on Fall precautions. Pt has HX of ADHD, Anxiety, Depression, PTSD, Jaw FX, and Polycystic Ovarian Syndrome. Pt has completed 5 day Subutex and Ativan tapers, tolerated well. No s/s of distress noted at this time. Respirations even and unlabored. Will continue to monitor. Addendum: 05/31/16 at 2226 by ANIA PAULINO LVN Pt is on Full Code status and on Soft diet
--- NOTE | 2016-05-31 20:09 | NUR ---
MD Communication Notified MD of d/c'd medication, Toradol Q6PRN for Severe pain 8-10, and asked if he would like it continued. MD stated that he would like the medication continued. Placed order.
[2016-05-31 20:15] VITALS: BP 114/67
[2016-05-31] MEDS: BUPRENORPHINE HCL 2 MG TAB.SUBL SL SCH (20:23)
--- NOTE | 2016-05-31 20:47 | NUR ---
PRN Zofran Pt c/o nausea and requested for PRN Zofran. Medication given and tolerated well. Will reassess within 1 HR. Will continue to monitor.
--- NOTE | 2016-05-31 21:45 | NUR ---
PRN Zofran Reassessment Medication effective. No s/s of ASE/distress noted at this time. Respirations even and unlabored. Will continue to monitor.
--- NOTE | 2016-05-31 22:15 | NUR ---
PRN Toradol Pt c/o Jaw pain 10/28 and requested for PRN Toradol. Medication given and tolerated well. Will reassess within 1 HR. Will continue to monitor.
--- NOTE | 2016-05-31 23:10 | NUR ---
PRN Toradol Reassessment Medication effective. Pain is now 4/10. No s/s of ASE/distress noted at this time. Respirations even and unlabored. Will continue to monitor.
[2016-06-01 00:15] VITALS: BP 92/42
[2016-06-01] MEDS: diphenhydrAMINE 50 MG CAPSULE PO PRN (00:19)
--- NOTE | 2016-06-01 00:25 | NUR ---
PRN Benadryl and TUMS Pt c/o inability to sleep and upset stomach and requested for PRN Benadryl and Tums. Medications given and tolerated well. Will reassess within 1 HR. Will continue to monitor.
[2016-06-01] MEDS: CALCIUM CARBONATE 500 MG TAB.CHEW PO PRN (00:33)
--- NOTE | 2016-06-01 01:20 | NUR ---
PRN Benadryl and TUMS Reassessment Medications effective. Pt is resting well in bed with no s/s of ASE/upset stomach/distress noted at this time. Respirations even and unlabored. Will continue to monitor.
[2016-06-01 04:22] VITALS: BP 82/44
[2016-06-01] MEDS: PANTOPRAZOLE SODIUM 40 MG TABLET.DR PO SCH (06:28)
--- NOTE | 2016-06-01 06:58 | NUR ---
End of shift note Pt is a 30 yo female, A+Ox4, presenting to [facility] for Opiate/ETOH/Benzo/Marijuana dependence. Pt has Allergies to PCN and Trazodone. Pt is on Fall precautions. Pt has HX of ADHD, Anxiety, Depression, PTSD, Jaw FX, and Polycystic Ovarian Syndrome. Pt has completed 5 day Subutex and Ativan tapers, tolerated well. Pt was given PRN Zofran @2047, PRN Toradol @2215, and PRN Benadryl and Tums @0025. Pt slept for a total of 5 HRS. Last COWS: 3 and Last CIWA: 1 @0400. No s/s of distress noted at this time. Respirations even and unlabored. Will endorse to day shift nurse.
--- NOTE | 2016-06-01 07:56 | NUR ---
BEGINNING OF SHIFT Patient endorsement report received from shift production associate nurse, all pertinent information discussed. Patient is a 30 year old female, full code, with no known allergies, On a soft diet. Patient with past medical history of: ADHD, anxiety, depression, PTSD, polycystic ovarian syndrome, Jaw fracture and Jaw surgeries (December). Patient with substance use history of: heroin IV 2 grams daily one week, ETOH 2-750ml of vodka daily for 2 days, Ativan 1mg/daily, Marijuana unknown amount. Patient was placed on a 5 day Ativan and Subutex taper as ordered, and completed taper, under close observation. As per shift production associate patient received PRN: Toradol, Zofran, tums, and Benadryl, patient slept for 5 hours. Patient with last cow score of: 3 and ciwa score of: 1. Patient received awake, alert and oriented x4, educated patient regarding plan of care for the day and medication regimen with good verbal understanding. safety measures in place, call light kept with in reach, will continue to monitor.
[2016-06-01 08:04] LABS: CALCIUM 8.8 mg/dL (8.5-10.1); CREATININE 0.7 mg/dL (0.6-1.3); MAGNESIUM 1.7 mg/dL (1.8-2.4); PHOSPHOROUS 4.3 mg/dL (2.5-4.9); POTASSIUM 4.3 mmol/L (3.5-5.1)
[2016-06-01 08:19] VITALS: BP 104/62
[2016-06-01] MEDS: DICYCLOMINE HCL 20 MG TABLET PO SCH ×3 (08:55→20:29)
[2016-06-01] MEDS: GABAPENTIN 300 MG CAPSULE PO SCH ×3 (08:55→20:29)
[2016-06-01] MEDS: buPROPion XL 150 MG TAB.SR.24H PO SCH (08:55)
[2016-06-01] MEDS: FOLIC ACID 1 MG TABLET PO SCH (08:55)
[2016-06-01] MEDS: THIAMINE HCL 100 MG TABLET PO SCH (08:55)
[2016-06-01] MEDS: BUPRENORPHINE HCL 2 MG TAB.SUBL SL SCH (08:55)
[2016-06-01] MEDS: TOPIRAMATE 100 MG TABLET PO SCH (08:55)
[2016-06-01] MEDS: MULTIVITAMINS,THERAPEUTIC TABLET PO SCH ×2 (08:55→08:59)
[2016-06-01] MEDS: SPIRONOLACTONE 50 MG TABLET PO SCH ×2 (08:55→17:03)
[2016-06-01] MEDS: PATIENT MAY USE OWN MED- MD OK PO SCH (08:56)
[2016-06-01] MEDS ORDERED: MAGNESIUM OXIDE 400 MG TABLET PO ONE (10:00)
[2016-06-01] MEDS ORDERED: DICY20TA28 PO (12:00)
[2016-06-01] MEDS ORDERED: DIPH50CA37 PO (12:00)
[2016-06-01] MEDS ORDERED: Gabapentin PO (12:00)
[2016-06-01] MEDS ORDERED: Bupropion Hcl PO (12:00)
[2016-06-01] MEDS ORDERED: PANT40TA2 PO (12:00)
[2016-06-01] MEDS ORDERED: METH-33 PO (12:03)
[2016-06-01] MEDS ORDERED: Ibuprofen PO (12:03)
--- NOTE | 2016-06-01 13:12 | NUR ---
MD COMMUNICATION Magnesium was replaced as ordered by MD for magnesium level of 1.7, will continue to monitor.
[2016-06-01 13:27] VITALS: BP 100/68
[2016-06-01] MEDS: CLONIDINE HCL 0.1 MG TABLET PO PRN (13:48)
[2016-06-01] MEDS: BENZOCAINE/MENTH/CETYLPYRD LOZENGE MM PRN (13:49)
--- NOTE | 2016-06-01 13:50 | NUR ---
PRN CEPACOL/CLONIDINE Patient report sore throat, and increase in anxiety, provided with non pharmacological interventions with no relief, administered PRN: Cepacol lozenge and clonidine as ordered, will monitor effectiveness.
--- NOTE | 2016-06-01 14:50 | NUR ---
CEPACOL/CLONIDINE REASSESSMENT Patient reports throat feels better and feels less anxious, safety measures in place. call light kept with in reach, will continue to monitor closely. safety measures in place.
--- NOTE | 2016-06-01 15:32 | NUR ---
ROBAXIN REASSESSMENT Patient reports medication with relief, muscle aches 2/10, tolerable as per patient, will conitnue to monitor.
[2016-06-01] MEDS: METHOCARBAMOL 750 MG TABLET PO PRN (17:07)
[2016-06-01 17:28] VITALS: BP 112/69
--- NOTE | 2016-06-01 18:13 | NUR ---
PRN ROBAXIN Patient reports muscle aches 6/10 provided with non pharmacological interventions with no relief, patient administered PRN Robaxin as ordered, will monitor effectiveness.
--- NOTE | 2016-06-01 18:22 | NUR ---
MD COMMUNICATION Patient reported that her left hip area is itchy area noted red and irritated, per Dr. Rocha, new orders for benadryl cream 2% BID to left hip area, MD unable to input orders at this time. Orders noted and carried out, and verfied with MD. will continue to monitor.
[2016-06-01] MEDS ORDERED: diphenhydrAMINE/ZINC ACET CREAM 28 GM TUBE TOP PRN (18:30)
--- NOTE | 2016-06-01 18:30 | NUR ---
MD COMMUNICATION Patient reported that she is feeling increase in anxiety, encouraged patient to express self, provided with non pharmacological interventions with no relief, Dr. salguero with new orders for vistaril 50mg po one time now. MD unable to input order, orders was noted and carried out and verified with MD will continue to monitor.
[2016-06-01] MEDS ORDERED: HYDROXYZINE PAMOATE 25 MG CAPSULE PO ONE (18:45)
--- NOTE | 2016-06-01 19:07 | NUR ---
PRN VISTARIL Patient was administered Vistaril at 1845 d/t increase in anxiety, not relieved by pharmacological interventions with monitor effectiveness.
--- NOTE | 2016-06-01 19:20 | NUR ---
END OF SHIFT Patient alert and oriented x4, vital signs were stable during shift, patient compliant with therapeutic plan of care. Patient with admitting Dx: opiate/etoh dependence, 0900 patient presented with: mild bone and joint aches, mild anxiety and mild agitation with cow score of: 2 and ciwa score of: 2; 1300 assessment patient presented with: anxiety and irritability with cow score of: 2 and ciwa score of: 3; 1700 assessment patient presented with:mild bone and joint aches, and mild anxiety with cow score of: 2 and ciwa score of: 1. patient was administered last dose of Subutex taper this morning, well tolerated, no ASE noted. Patient is scheduled for discharge for tomorrow morning, noted self motivated towards sobriety. Patient was administered PRN: Cepacol as ordered, for c/o sore throat, and clonidine for increase in anxiety, Robaxin for muscle aches, medications were effective. Patient also administered Vistaril at 1845, endorsed to night patrol inspector nurse to monitor effective of Vistaril. Patient also noted with redness and irritation to left hip with new orders for Benadryl 2% cream. Patient encouraged to attend group therapies/sessions to learn new coping skills to prevent relapse, preferred to stay in room, despite much encouragement, denies SI/HI. Patient encouraged adequate PO fluid intake as tolerated. Safety measures in place. will continue to monitor. safety measures in place.
--- NOTE | 2016-06-01 19:21 | NUR ---
Start of shift note Received report from day shift nurse. Pt is a 30 yo female, A+Ox4, presenting to [facility] for Opiate/ETOH/Benzo/Marijuana dependence. Pt has Allergies to PCN and Trazodone, is Full Code status, and on Soft diet. Pt is on Fall precautions. Pt has HX of ADHD, Anxiety, Depression, PTSD, Jaw FX, and Polycystic Ovarian Syndrome. Pt has completed 5 day Subutex and Ativan tapers, tolerated well, and ids due for discharge tomorrow. No s/s of distress noted at this time. Respirations even and unlabored. Will continue to monitor.
[2016-06-01 20:15] VITALS: BP 107/62
[2016-06-01] MEDS: KETOROLAC TROMETHAMINE 30 MG INJ IM PRN (20:30)
--- NOTE | 2016-06-01 20:30 | NUR ---
PRN Toradol Pt c/o Jaw pain 09/27 and requested for PRN Toradol. Medication given and tolerated well. Will reassess within 1 HR. Will continue to monitor.
--- NOTE | 2016-06-01 21:25 | NUR ---
PRN Toradol Reassessment Medication effective. Pain is now 3/10. No s/s of ASE/distress noted at this time. Respirations even and unlabored. Will continue to monitor.
[2016-06-01 21:46] LABS: *AMPHETAMINE, URINE NEGATIVE (NEGATIVE); *BARBITURATE, URINE NEGATIVE (NEGATIVE); *CANNABINOID, URINE NEGATIVE (NEGATIVE); *COCCAINE, URINE NEGATIVE (NEGATIVE); *OPIATE, URINE NEGATIVE (NEGATIVE); *PHENCYCLIDINE SCREEN,URINE NEGATIVE (NEGATIVE)
[2016-06-02 00:15] VITALS: BP 103/61
[2016-06-02] MEDS: diphenhydrAMINE 50 MG CAPSULE PO PRN (00:32)
--- NOTE | 2016-06-02 00:33 | NUR ---
PRN Benadryl Pt c/o inability to sleep and requested for PRN Benadryl. Medication given and tolerated well. Will reassess within 1 HR. Will continue to monitor.
--- NOTE | 2016-06-02 01:25 | NUR ---
PRN Benadryl Reassessment Medication effective. Pt resting well in bed. No s/s of ASE/distress noted at this time. Respirations even and unlabored. Will continue to monitor.
[2016-06-02 04:12] VITALS: BP 93/51
[2016-06-02] MEDS: PANTOPRAZOLE SODIUM 40 MG TABLET.DR PO SCH (06:51)
[2016-06-02] MEDS: BENZOCAINE/MENTH/CETYLPYRD LOZENGE MM PRN (06:53)
--- NOTE | 2016-06-02 06:55 | NUR ---
PRN Cepacol Lozenge Pt c/o sore throat and requested for PRN Cepacol Lozenge. Medication given and tolerated well. Will reassess within 1 HR. Will continue to monitor.
--- NOTE | 2016-06-02 07:04 | NUR ---
End of shift note Pt is a 30 yo female, A+Ox4, presenting to [facility] for Opiate/ETOH/Benzo/Marijuana dependence. Pt has Allergies to PCN and Trazodone, Full Code status, and on Soft Diet. Pt is on Fall precautions. Pt has HX of ADHD, Anxiety, Depression, PTSD, Jaw FX, and Polycystic Ovarian Syndrome. Pt has completed 5 day Subutex and Ativan tapers, tolerated well, and is due for discharge today. Pt was given PRN Toradol @2030, PRN Benadryl @0033, and PRN cepacol @0655. Pt slept for a total of 6 HRS. Last COWS: 1 and Last CIWA: 3 @0400. No s/s of distress noted at this time. Respirations even and unlabored. Will endorse to day shift nurse.
--- NOTE | 2016-06-02 07:15 | NUR ---
start of shift note: received pt from night assistant nurse, pt is in stable condition at this time no s/s of pain or discomfort. pt is admitted to [facility] for opiate/etoh/benzo withdrawal/ dependence. pt is set for discharge today will assist pt in discharging and will continue to monitor pt for any changes
[2016-06-02] MEDS: SPIRONOLACTONE 50 MG TABLET PO SCH (09:01)
[2016-06-02] MEDS: PATIENT MAY USE OWN MED- MD OK PO SCH (09:03)
[2016-06-02] MEDS: MULTIVITAMINS,THERAPEUTIC TABLET PO SCH (09:04)
[2016-06-02] MEDS: FOLIC ACID 1 MG TABLET PO SCH (09:04)
[2016-06-02] MEDS: buPROPion XL 150 MG TAB.SR.24H PO SCH (09:04)
[2016-06-02] MEDS: THIAMINE HCL 100 MG TABLET PO SCH (09:04)
[2016-06-02] MEDS: DICYCLOMINE HCL 20 MG TABLET PO SCH (09:04)
[2016-06-02] MEDS: TOPIRAMATE 100 MG TABLET PO SCH (09:04)
[2016-06-02] MEDS: GABAPENTIN 300 MG CAPSULE PO SCH (09:05)
--- NOTE | 2016-06-02 09:35 | NUR ---
discharge note: pt left the unit in stable condition no s/s of pain or discomfort or any withdrawal symptoms. pt teaching administered and pt verbalized understanding.Pt's V/S WNL. all personal belongings returned to pt. pt will be transferred to [facility] via private car
[2016-06-03 10:07] LABS: *CANNABINOID (THC) Positive (.)
== END 2016-06-02 09:35 | disposition home or self-care (01) | DRG 895 ==
LOC: SRC 05-26 00:50
PROVIDERS: ADMIT Internal Medicine; ATTEND Internal Medicine
PROC: HZ2ZZZZ Detoxification Services for Substance Abuse Treatment (ICD-10-PCS; principal; 2016-05-26)
PROC: HZ51ZZZ Individual Psychotherapy for Substance Abuse Treatment, Behavioral (ICD-10-PCS; 2016-05-27)
DX: F10.230 Alcohol dependence with withdrawal, uncomplicated (principal); F13.230 Sedative, hypnotic or anxiolytic dependence with withdrawal, uncomplicated; Y90.9 Presence of alcohol in blood, level not specified; F90.9 Attention-deficit hyperactivity disorder, unspecified type; Z81.8 Family history of other mental and behavioral disorders; Z81.1 Family history of alcohol abuse and dependence; G43.909 Migraine, unspecified, not intractable, without status migrainosus; F41.9 Anxiety disorder, unspecified; E28.2 Polycystic ovarian syndrome; E83.42 Hypomagnesemia; G89.21 Chronic pain due to trauma; K21.9 Gastro-esophageal reflux disease without esophagitis; S02.609D Fracture of mandible, unspecified, subsequent encounter for fracture with routine healing; X58.XXXD Exposure to other specified factors, subsequent encounter; E87.6 Hypokalemia; E86.0 Dehydration; F12.90 Cannabis use, unspecified, uncomplicated; Z79.899 Other long term (current) drug therapy; F32.9 Major depressive disorder, single episode, unspecified
CPT/HCPCS: 36415; 80307; 80349; 83735; 84100; 84443; 84703; 85025; 86580; 86705; 87340; 87806; A4663; C9113; G6040-TC; J1885; J3490; J7030; J7060; Q0162; Q0163

== ENCOUNTER 2016-09-11 19:49 | Inpatient (IN) | payer OTHER ==
[~2016-09-11] VITALS: Ht 170.2 cm; Wt 54.4 kg
[~2016-09-11 19:49] MED LIST changes: +DICY20TA28 PO; +DIPH50CA37 PO; +Gabapentin PO; +Ibuprofen PO; +METH-33 PO; +PANT40TA2 PO; +TOPI100T PO; -TOPI100T11 PO
--- NOTE | 2016-09-12 00:50 | NUR ---
Pre Admission Note Patient is a 31-year old female, seen at intake, no SOB, anxiety noted at this time. Discussed with patient admission policies of the unit. Pt appears intoxicated, however is able to respond to questions. Vital signs taken and as follows: SO=610/82, P=79, O2 sat on RA=96%, RR=16, T=97.9. Pt verbalized instructions and teachings regarding disposal of narcotic and other controlled home meds, unit protocols such as taking of vital signs Q4H and handling and disposal of contraband. Will continue with admission upon pts arrival on the unit.
[2016-09-12 01:05] VITALS: BP 129/82
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
[2016-09-12] MEDS ORDERED: DICYCLOMINE HCL 20 MG TABLET PO PRN (01:45)
[2016-09-12] MEDS ORDERED: BUPRENORPHINE HCL 2 MG TAB.SUBL SL PRN (01:45)
[2016-09-12] MEDS ORDERED: MAG HYDROX/AL HYDROX/SIMETH 30 ML LIQUID UDC PO PRN (01:45)
[2016-09-12] MEDS ORDERED: ACETAMINOPHEN 325 MG TABLET PO PRN (01:45)
[2016-09-12] MEDS ORDERED: LORAZEPAM 2 MG/1 ML VIAL IM PRN (01:45)
[2016-09-12] MEDS ORDERED: LOPERAMIDE HCL 2 MG CAPSULE PO PRN ×2 (01:45)
[2016-09-12] MEDS ORDERED: LORAZEPAM 1 MG TABLET PO PRN ×2 (01:45)
[2016-09-12] MEDS ORDERED: MAGNESIUM HYDROXIDE 30 ML LIQUID UDC PO PRN (01:45)
[2016-09-12] MEDS ORDERED: THIAMINE HCL 200 MG/2 ML VIAL IM ONE (01:45)
[2016-09-12] MEDS ORDERED: CLONIDINE HCL 0.1 MG TABLET PO PRN (01:45)
[2016-09-12] MEDS ORDERED: ONDANSETRON 4 MG/2 ML VIAL IM PRN (01:45)
[2016-09-12] MEDS ORDERED: diphenhydrAMINE 50 MG CAPSULE PO PRN ×2 (01:45→16:15)
[2016-09-12] MEDS ORDERED: DOXY100C2 PO (03:30)
[2016-09-12] MEDS ORDERED: IBUP-1955 PO (03:30)
[2016-09-12 04:00] VITALS: BP 132/76
--- NOTE | 2016-09-12 04:00 | NUR ---
Vital Signs BP 132/76, pulse 85, resp 16, SpO2 100% room air, temp 97.9, no reports of pain COWS/CIWA deferred d/t pt sleeping to assess while pt is awake as ordered. Safety measures in place, will continue to monitor.
[2016-09-12] MEDS: ONDANSETRON ODT 4 MG TAB.RAPDIS SL PRN ×2 (06:43→21:29)
--- NOTE | 2016-09-12 06:43 | NUR ---
Zofran PRN Pt reports feeling nausea, no emesis episode. Zofran 4mg ODT PRN administered. Will endorse onto day shift nurse to monitor effectiveness.
[2016-09-12] MEDS ORDERED: ONDANSETRON ODT 4 MG TAB.RAPDIS ONE (06:54)
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
--- NOTE | 2016-09-12 07:15 | NUR ---
PRN REASSESSMENT Patient is not complaining of nausea after Zofran was given. will continue to monitor.
[2016-09-12 08:00] VITALS: BP 119/78
--- NOTE | 2016-09-12 08:00 | NUR ---
START OF SHIFT NOTE Patient is alert and orientated X4. Patient was admitted last night. Patient is complaining of SOB this morning with chest pain. Dr. Rocha notified and stat chest X ray ordered. Patient is on 2L O2 with O2 saturation at 95%. patient remains in bed. Urine was collected and labs are currently being drawn. Patients last CIWA 4 COWS 3 according to night nurse. Patient didnt sleep well last night. All safety measures in place. Will continue to monitor closely.
[2016-09-12 08:39] LABS: BASOPHILS # (AUTO) 0.1 K/uL (0.0-8.0); BASOPHILS % (AUTO) 0.9 % (0.0-2.0); EOSINOPHILS # (AUTO) 0.2 K/uL (0.0-0.7); EOSINOPHILS % (AUTO) 2.2 % (0.0-7.0); LYMPHOCYTES % (AUTO) 25.4 % (20.5-51.5); MEAN CORPUSCULAR HEMOGLOBIN 32.1 UUG (27.0-31.0); MEAN CORPUSCULAR HGB CONC 34 g/dL (32.0-37.0); MEAN CORPUSCULAR VOLUME 93.7 FL (81.0-99.0); MONOCYTES # (AUTO) 0.5 K/UL (0.1-1.30); MONOCYTES % (AUTO) 6.2 % (0.0-11.0); NEUTROPHILS # (AUTO) 4.9 K/UL (1.8-8.9); NEUTROPHILS % (AUTO) 65.3 % (38.5-71.5); PLATELET COUNT (AUTO) 292 K/UL (150-450); RED BLOOD CELL COUNT(AUTO) 4.05 MIL/UL (4.2-5.4); WHITE BLOOD COUNT (AUTO) 7.7 K/UL (4.0-11.2)
[2016-09-12 08:48] LABS: *URINE HCG, QUAL NEGATIVE (NEGATIVE)
[2016-09-12 08:54] LABS: ETHANOL < 3 MG/DL (0-0)
[2016-09-12 08:56] LABS: *AMPHETAMINE, URINE NEGATIVE (NEGATIVE); *BARBITURATE, URINE NEGATIVE (NEGATIVE); *CANNABINOID, URINE POSITIVE (NEGATIVE); *COCCAINE, URINE POSITIVE (NEGATIVE); *OPIATE, URINE POSITIVE (NEGATIVE); *PHENCYCLIDINE SCREEN,URINE NEGATIVE (NEGATIVE)
[2016-09-12 09:04] LABS: ALANINE AMINOTRANSFERASE 81 U/L (14-59); ALKALINE PHOSPHATASE 120 U/L (50-136); AMYLASE 52 U/L (25-115); ASPARTATE AMINOTRANSFERASE 93 U/L (15-37); BILIRUBIN,TOTAL 0.6 mg/dL (0.2-1.0); CARBON DIOXIDE 31 mmol/L (21-32); CHLORIDE 95 mmol/L (98-107); CREATININE 0.6 mg/dL (0.6-1.3); GLUCOSE 98 mg/dL (74-106); LIPASE 55 U/L (73-393); MAGNESIUM 1.6 mg/dL (1.8-2.4); POTASSIUM 4.2 mmol/L (3.5-5.1); TOTAL PROTEIN, SERUM 7.8 g/dL (6.4-8.2); UREA NITROGEN, BLOOD 9 mg/dL (7-18)
[2016-09-12 09:12] LABS: THYROID STIMULATING HORMONE 0.942 mIU/mL (0.358-3.740)
[2016-09-12] MEDS: FOLIC ACID 1 MG TABLET PO SCH (09:57)
[2016-09-12] MEDS: THIAMINE HCL 100 MG TABLET PO SCH (09:57)
[2016-09-12] MEDS: LORAZEPAM 1 MG TABLET PO SCH ×4 (09:57→21:00)
[2016-09-12] MEDS: MULTIVITAMINS,THERAPEUTIC TABLET PO SCH (09:57)
[2016-09-12 12:00] VITALS: BP 120/78
[2016-09-12] MEDS ORDERED: IV NS 1000 ML 1,000 ML IV PRN (14:30)
[2016-09-12] MEDS ORDERED: GABAPENTIN 300 MG CAPSULE PO SCH (15:00)
--- NOTE | 2016-09-12 15:15 | NUR ---
Pt seen and examined by Dr. Torres
[2016-09-12] MEDS: GABAPENTIN 300 MG CAPSULE PO SCH ×2 (15:23→21:30)
[2016-09-12] MEDS ORDERED: TRAZODONE 50 MG TABLET PO PRN (15:45)
[2016-09-12 16:00] VITALS: BP 118/76
[2016-09-12] MEDS: NEOMY/BACITRAC/POLYMI OINT 28.35 GM TUBE TOP SCH (16:00)
[2016-09-12] MEDS: BUPRENORPHINE HCL 2 MG TAB.SUBL SL SCH ×2 (16:01→21:24)
[2016-09-12] MEDS: SPIRONOLACTONE 50 MG TABLET PO SCH (16:01)
--- NOTE | 2016-09-12 18:54 | NUR ---
END OF SHIFT NOTE Patient was admitted last night. Allergies to Penicillin and Trazodone. Full code. Vegetarian diet. Patient was complaining of SOB and chest pain this morning; chest X-Ray ordered and MD aware. Patient was seen by Dr. Rocha. She is on 2L nasal cannula PRN for low O2 saturation. Patient is saturating at >95%. Patient started a 4 day Ativan Taper and Subutex taper, tolerating well. Urine was collected and labs were drawn. Vital signs are WNL throughout the day. Last CIWA 6 COWS 9. Patient has remained in bed most of the day sleeping off and on. She has been complaint with MD orders. No PRN meds given. All safety measures in place, call light within reach, bed locked and in lowest position. Will continue to monitor the patient and endorse to oncoming night nurse.
--- NOTE | 2016-09-12 19:45 | NUR ---
START OF SHIFT Received report from day shift nurse. Pt is lying in bed resting. She is a 29 yo female admitted to [facility] on 09/12 for ETOH, BZD, and opiate dependence. She is A&O x3 and ambulatory. Allergies to PCNs and Trazodone. She has a PMH of polycystic ovarian syndrome, jaw fracture w/ ORIF, PTSD, ADHD, anxiety, and depression. On admission she reported drinking vodka 2 750mL bottles per day, heroin 2 grams per day, ativan 1mg per day, and cocaine 2 grams per day, marijuana 1 gram per day. She started a 5 day Ativan and 5 day Subutex taper today. She reports body aches, runny nose, and headache. Pt has moist skin. SpO2 99% on RA. She denies SOB. Tapers due tonight. Fall and seizure precautions ordered. Bed is down with call light in reach.
[2016-09-12 20:00] VITALS: BP 110/73
[2016-09-12] MEDS: DOXYCYCLINE HYCLATE 100 MG TABLET PO SCH (21:29)
[2016-09-12] MEDS: IBUPROFEN 400 MG TABLET PO PRN (21:30)
--- NOTE | 2016-09-12 21:31 | NUR ---
PRN Zofran and Motrin Pt reports body aches, headache, and nausea. PRN Zofran and Motrin administered.
--- NOTE | 2016-09-12 22:27 | NUR ---
PRN Milk of Magnesia Pt reports no BM since prior to admission. Encouraged fluids. PRN Milk of Magnesia administered.
--- NOTE | 2016-09-12 22:31 | NUR ---
PRN Zofran and Motrin reassessment PRN Zofran effective. Pt's nausea is relieved. PRN Motrin effective. Headache is relieved and body aches have decreased.
--- NOTE | 2016-09-12 23:25 | NUR ---
IV Insertion 24 gauge IV inserted to right forearm with good blood returned. Flushed and secured. Pt tolerated the insertion.
[2016-09-13] VITALS: BP 110/73
[2016-09-13 04:00] VITALS: BP 102/62
--- NOTE | 2016-09-13 04:00 | NUR ---
0400 CIWA and COWS deferred CIWA and COWS ordered Q4HWA. Pt is lying in bed resting with eyes closed. Respirations even and unlabored. Vital signs obtained. Safety measures in place.
[2016-09-13] MEDS: IBUPROFEN 400 MG TABLET PO PRN (06:22)
--- NOTE | 2016-09-13 06:25 | NUR ---
PRN Motrin Pt woke up and c/o headache. PRN Motrin administered.
--- NOTE | 2016-09-13 07:25 | NUR ---
END OF SHIFT Report provided to day shift nurse. Pt is lying in bed resting. She is a 29 yo female admitted to [facility] on 09/12 for ETOH, BZD, and opiate dependence. She is A&O x3 and ambulatory. Allergies to PCNs and Trazodone. Full code and vegetarian diet. She has a PMH of polycystic ovarian syndrome, jaw fracture w/ ORIF, PTSD, ADHD, anxiety, and depression. On admission she reported drinking vodka 2 750mL bottles per day, heroin 2 grams per day, ativan 1mg per day, and cocaine 2 grams per day, marijuana 1 gram per day. She started a 5 day Ativan and 5 day Subutex taper 09/12. IV to left forearm started with NS running per orders. IV became infiltrated. Fluids stopped and IV removed. Ice pack provided and educated pt to elevate the arm. Endorsed to day shift for follow up. PRN Motrin x2, Zofran, and MOM administered. Fall and seizure precautions ordered. Bed is down with call light in reach.
--- NOTE | 2016-09-13 07:55 | NUR ---
START OF SHIFT Received report from night nurse. 31 year old female patient admitted on 09/12/16 for ETOH, Opiate and Benzo dependence. Pt had hx of polycystic ovarian syndrome, hx of jaw fracture, PTSD, ADHD, anxiety and depression. Pt is on Subutex and Ativan taper and is tolerating well. Overnight, pt has NS IVF, but IV infiltrated, removed, cold packs applied. Pt tolerates fluids at this time. Pt follows a vegetarian diet. Pt has order for PRN oxygen, O2 is 99% at this time. Pt is not in any acute distress. V/S were wnl throughout shift. PRN Motrin x2 and PRN Zofran was administered, and effective. Most recent COWS are 3 and CIWA 2 at 0000. Pt has bilateral underarm cyst and is receiving PO antibiotics. Pt is compliant with treatment plan. All needs met at this time, will continue to monitor.
[2016-09-13 08:04] VITALS: BP 109/68
[2016-09-13] MEDS: SPIRONOLACTONE 50 MG TABLET PO SCH ×2 (08:32→17:20)
[2016-09-13] MEDS: BUPRENORPHINE HCL 2 MG TAB.SUBL SL SCH ×3 (08:33→21:59)
[2016-09-13] MEDS: LORAZEPAM 1 MG TABLET PO SCH ×3 (08:33→21:58)
[2016-09-13] MEDS: DOXYCYCLINE HYCLATE 100 MG TABLET PO SCH ×2 (08:33→21:59)
[2016-09-13] MEDS: MULTIVITAMINS,THERAPEUTIC TABLET PO SCH (08:33)
[2016-09-13] MEDS: FOLIC ACID 1 MG TABLET PO SCH (08:33)
[2016-09-13] MEDS: GABAPENTIN 300 MG CAPSULE PO SCH ×2 (08:33→15:11)
[2016-09-13] MEDS: THIAMINE HCL 100 MG TABLET PO SCH (08:33)
[2016-09-13] MEDS: NEOMY/BACITRAC/POLYMI OINT 28.35 GM TUBE TOP SCH ×2 (08:34→17:21)
[2016-09-13] MEDS: METHOCARBAMOL 750 MG TABLET PO PRN (08:44)
--- NOTE | 2016-09-13 08:45 | NUR ---
PRN ROBAXIN Pt c/o increased body aches 09/27, generalized. Will reassess.
[2016-09-13] MEDS ORDERED: TUBERCULIN,PURIF.PROT.DERIV. 5 TU/0.1 ML TEST ID ONE (09:00)
[2016-09-13] MEDS ORDERED: PATIENT MAY USE OWN MED- MD OK PO SCH ×2 (09:00→21:00)
--- NOTE | 2016-09-13 09:45 | NUR ---
REASSESSMENT Pt states Robaxin was effective and denies pain at this time. Pt is resting in bed.
[2016-09-13 10:12] LABS: HEPATITIS B SURFACE AG Negative (Negative)
[2016-09-13 12:47] VITALS: BP 125/71
--- NOTE | 2016-09-13 15:29 | NUR ---
Therapist prompted client to attend daily group sessions, and client stated she would when she feels better.
[2016-09-13 17:19] VITALS: BP 126/69
--- NOTE | 2016-09-13 19:04 | NUR ---
END OF SHIFT 31 year old female patient admitted on 09/12/16 for ETOH, Opiate and Benzo dependence. Pt had hx of polycystic ovarian syndrome, hx of jaw fracture, PTSD, ADHD, anxiety and depression. Pt is on Subutex and Ativan taper and is tolerating well. IVF discontinued, pt tolerates oral intake of fluids adequately. Pt follows a vegetarian diet. Pt has order for PRN oxygen, O2 is 99% room air throughout shift. Pt is not in any acute distress. V/S were wnl throughout shift. PRN Robaxin was administered and effective. Most recent COWS are 4 and CIWA 6 at 1700. Pt has bilateral underarm cyst and is receiving PO antibiotics. Pt is compliant with treatment plan. Influenza and Strep swabs done, results are pending. All needs met at this time, will continue to monitor.
[2016-09-13 20:00] VITALS: BP 125/82
--- NOTE | 2016-09-13 20:00 | NUR ---
START OF SHIFT Received report from day shift nurse. Pt attended a group meeting and returned to her room after. She is a 29 yo female admitted to [facility] on 09/12 for ETOH, BZD, and opiate dependence. She is A&O x3 and ambulatory. Allergies to PCNs and Trazodone. She has a PMH of polycystic ovarian syndrome, jaw fracture w/ ORIF, PTSD, ADHD, anxiety, and depression. On admission she reported drinking vodka 2 750mL bottles per day, heroin 2 grams per day, ativan 1mg per day, cocaine 2 grams per day, and marijuana 1 gram per day. 5 day Ativan and 5 Subutex tapers were started 09/12. She reports body aches, chills, and anxiety. She is noted with mild hand tremors. Tapers due tonight. Fall and seizure precautions ordered. Bed is down with call light in reach.
[2016-09-13] MEDS ORDERED: MAGNESIUM OXIDE 400 MG TABLET PO ONE (21:00)
[2016-09-13] MEDS: TOPIRAMATE 100 MG TABLET PO SCH ×2 (21:00→21:58)
[2016-09-13] MEDS: BACLOFEN 10 MG TABLET PO SCH (21:58)
[2016-09-13] MEDS: ONDANSETRON ODT 4 MG TAB.RAPDIS SL PRN (21:59)
[2016-09-13] MEDS: GABAPENTIN 400 MG CAPSULE PO SCH (21:59)
--- NOTE | 2016-09-13 22:00 | NUR ---
PRN Zofran Pt reports nausea without vomiting. PRN Zofran administered.
[2016-09-13] MEDS: MIRALAX 17 GM POWD.PACK PO PRN (22:20)
--- NOTE | 2016-09-13 22:21 | NUR ---
PRN Miralax Pt reports no BM since prior to admission. Encouraged fluids. PRN Miralax administered.
--- NOTE | 2016-09-13 22:30 | NUR ---
PRN Zofran reassessment PRN Zofran effective. Pt reports nausea is relieved.
[2016-09-14] VITALS: BP 96/48
--- NOTE | 2016-09-14 | NUR ---
0000 COWS and CIWA deferred COWS and CIWA ordered Q4HWA. Pt is lying in bed resting with eyes closed. Respirations even and unlabored. Vital signs obtained. Safety measures in place.
[2016-09-14 04:00] VITALS: BP 109/86
--- NOTE | 2016-09-14 07:25 | NUR ---
START OF SHIFT Received report from day shift nurse. Pt is lying in bed resting. She is a 29 yo female admitted to [facility] on 09/12 for ETOH, BZD, and opiate dependence. She is A&O x3 and ambulatory. Allergies to PCNs and Trazodone. She has a PMH of polycystic ovarian syndrome, jaw fracture w/ ORIF, PTSD, ADHD, anxiety, and depression. On admission she reported drinking vodka 2 750mL bottles per day, heroin 2 grams per day, ativan 1mg per day, and cocaine 2 grams per day, marijuana 1 gram per day. 5 day Ativan and 5 Subutex tapers were started 09/12. PRN Zofran administered. COWS 4 and CIWA 3. She drank 1095 and slept for 7 hours. Fall and seizure precautions ordered. Bed is down with call light in reach.
--- NOTE | 2016-09-14 07:49 | NUR ---
BEGINNING OF SHIFT Patient endorsement report received from shift foreman nurse, all pertinent information discussed. Patient is a 31 year old Female, allergic to penicillins and trazodone. Admitted on 09/12/2016. Admitting Dx: ETOH/opiate/BZO dependence. Patient currently under close observation. Ongoing 5 day Ativan and 5 day Subutex taper as ordered, and is currently to begin day: 3 of taper. Patient slept for 7 hours as per shift foreman. Also with last and ciwa score of: 3, and cow score of: 4. Received PRN: Zofran during shift foreman, medication effective as per report. Received patient alert and oriented x4, Educated regarding plan of care for the day and medication regimen with good verbal understanding. Safety measures in place. call light kept with in reach, fall and seizure precautions observed. Will continue to monitor closely.
[2016-09-14 08:20] LABS: CREATININE 0.7 mg/dL (0.6-1.3); MAGNESIUM 2.2 mg/dL (1.8-2.4); PHOSPHOROUS 4.8 mg/dL (2.5-4.9); POTASSIUM 4.3 mmol/L (3.5-5.1)
[2016-09-14] MEDS: DOXYCYCLINE HYCLATE 100 MG TABLET PO SCH ×2 (08:33→21:51)
[2016-09-14] MEDS: MULTIVITAMINS,THERAPEUTIC TABLET PO SCH (08:33)
[2016-09-14] MEDS: THIAMINE HCL 100 MG TABLET PO SCH (08:34)
[2016-09-14] MEDS: BACLOFEN 10 MG TABLET PO SCH ×3 (08:34→21:50)
[2016-09-14] MEDS: FOLIC ACID 1 MG TABLET PO SCH (08:34)
[2016-09-14] MEDS: LORAZEPAM 1 MG TABLET PO SCH ×4 (08:34→21:51)
[2016-09-14] MEDS: SPIRONOLACTONE 50 MG TABLET PO SCH ×2 (08:34→17:01)
[2016-09-14] MEDS: GABAPENTIN 400 MG CAPSULE PO SCH ×2 (08:34→14:41)
[2016-09-14 08:35] VITALS: BP 116/80
[2016-09-14] MEDS: NEOMY/BACITRAC/POLYMI OINT 28.35 GM TUBE TOP SCH ×2 (08:36→17:00)
[2016-09-14] MEDS ORDERED: BUPRENORPHINE HCL 2 MG TAB.SUBL SL SCH (09:00)
[2016-09-14 12:30] VITALS: BP 115/74
[2016-09-14] MEDS: BUPRENORPHINE HCL 2 MG TAB.SUBL SL SCH ×2 (14:42→21:51)
[2016-09-14] MEDS ORDERED: PATIENT MAY USE OWN MED- MD OK TOP SCH (15:15)
[2016-09-14 17:00] VITALS: BP 126/91
--- NOTE | 2016-09-14 19:00 | NUR ---
END OF SHIFT Patient alert and oriented x4, vital signs stable during shift. Patient compliant with therapeutic plan of care. Admitting Dx: ETOH/opiate/BZO dependence, Patient continues on 5 day Ativan taper and 5 day Subutex taper as ordered is currently on day 3 of tapers. 0900 assessment patient presented with: c/o chills, difficulty sitting still, dilated pupils, mild bone and joint aches, tremors that can be felt but not seen, mild anxiety, barely sweating, and mild agitation with cow score of: 6 and ciwa score of: 4; 1300 assessment patient presented with: c/o chills, dilated pupils, mild bone and joint aches, tremors that can be felt but not seen, mild anxiety, barely sweating, and mild agitation with cow score of: 5 and ciwa score of: 4. 1700 assessment patient presented with: c/o chills, dilated pupils, mild bone and joint aches, tremors that can be felt but not seen, mild anxiety, barely sweating, and mild agitation with cow score of: 5 and ciwa score of: 4. During shift administered no PRN medications. Patient encouraged to attend group/therapy sessions to learn new coping skills to prevent relapse, denies SI/HI. Patient compliant with plan of care during shift. Safety measures in place. call light kept with in reach. Patient endorsement report given to electro tech nurse, all pertinent information discussed. safety measures in place. will continue to monitor.
[2016-09-14 20:00] VITALS: BP 132/84
--- NOTE | 2016-09-14 20:00 | NUR ---
START OF SHIFT: Patient is a 31 yrs old female, alert and oriented x4. Patient compliant with therapeutic plan of care. Admitting Dx: ETOH/opiate/BZO dependence, patient continues on 5 day Ativan taper and 5 day Subutex taper as ordered. Last cow 3 and ciwa 3. Patient reports feeling anxious and WHITE. Patient encouraged to attend group/therapy sessions to learn new coping skills to prevent relapse. Safety measures in place and call light kept with in reach. Will continue to monitor.
[2016-09-14] MEDS ORDERED: GABAPENTIN 400 MG CAPSULE PO SCH (21:00)
[2016-09-14] MEDS: CLONIDINE HCL 0.1 MG TABLET PO SCH (21:50)
[2016-09-14] MEDS: TOPIRAMATE 100 MG TABLET PO SCH (21:50)
[2016-09-15] VITALS: BP 114/76
[2016-09-15] MEDS: IBUPROFEN 400 MG TABLET PO PRN (01:44)
--- NOTE | 2016-09-15 01:44 | NUR ---
PRN MOTRIN: Pt complaints of headache, gave Motrin for pain. Reports pain is 7/10. Will reassess for effectiveness.
--- NOTE | 2016-09-15 02:44 | NUR ---
PRN REASSESSMENT: Patient reports toothache relief, pain 04/27, med was effective. Addendum: 09/15/16 at 0529 by ALEXUS WHATLEY RN Patient reports headache relief, pain 04/27, med was effective.
--- NOTE | 2016-09-15 04:00 | NUR ---
VITAL SIGNS: Pt is sleeping, no distress noted. Addendum: 09/15/16 at 0434 by ALEXUS WHATLEY RN Amended: Links added.
--- NOTE | 2016-09-15 07:15 | NUR ---
END OF SHIFT: Patient is a 31 yrs old female, alert and oriented x4. Patient compliant with therapeutic plan of care. Admitting Dx: ETOH/opiate/BZO dependence, patient continues on 5 day Ativan taper and 5 day Subutex taper as ordered. Last cow 0 and ciwa 0 Patient reports having a headache, gave motrin for relief. Patient slept 6 hours. All pertinent information endorsed to am nurse. Patient will continue to be monitor.
--- NOTE | 2016-09-15 07:16 | NUR ---
Start of Shift Notes: Received patient in her room. Alert and oriented x 4. Verbally responsive. Able to make need known. Respirations even and unlabored. No SOB noted. Skin warm and dry to touch. Abdomen soft and non-distended with (+) BS in all 4 quadrants. No complains of N/V/D or constipation noted. Bladder non-distended. No complains of bladder pain or discomfort. Voids independently. Ambulatory ad mireya with steady gait. Patient is a 31 year old female admitted for ETOH, opiate, BZO and cocaine dependence who was placed on a 5-day Ativan and 5-day Subutex taper as ordered. No adverse reactions noted. Has past medical hx of PCOS, jaw fracture, PTSD, ADHD, anxiety and depression. Prior to admission, patient was using 1.5L of Vodka daily, 2 grams of Heroin, 1 mg of Ativan, 2 grams of cocaine and 1 gram of marijuana. Has allergies to PCN, and trazodone. FULL CODE. Regular diet. On fall and seizure precautions. Educated patient on her current plan of care for the day and her medication regimen. Encouraged oral fluid intake and encouraged group participation to learn new skills to prevent relapse.
[2016-09-15 08:00] VITALS: BP 102/64
[2016-09-15] MEDS: THIAMINE HCL 100 MG TABLET PO SCH (08:19)
[2016-09-15] MEDS: DOXYCYCLINE HYCLATE 100 MG TABLET PO SCH ×2 (08:20→21:19)
[2016-09-15] MEDS: BUPRENORPHINE HCL 2 MG TAB.SUBL SL SCH ×3 (08:20→21:20)
[2016-09-15] MEDS: GABAPENTIN 400 MG CAPSULE PO SCH ×3 (08:20→21:19)
[2016-09-15] MEDS: FOLIC ACID 1 MG TABLET PO SCH (08:20)
[2016-09-15] MEDS: SPIRONOLACTONE 50 MG TABLET PO SCH ×2 (08:20→16:24)
[2016-09-15] MEDS: NEOMY/BACITRAC/POLYMI OINT 28.35 GM TUBE TOP SCH ×2 (08:21→16:24)
[2016-09-15] MEDS: LORAZEPAM 1 MG TABLET PO SCH ×3 (08:21→21:20)
[2016-09-15] MEDS: MULTIVITAMINS,THERAPEUTIC TABLET PO SCH (08:21)
[2016-09-15] MEDS: CLONIDINE HCL 0.1 MG TABLET PO SCH ×2 (08:21→21:21)
[2016-09-15] MEDS: MIRALAX 17 GM POWD.PACK PO PRN (08:32)
--- NOTE | 2016-09-15 08:32 | NUR ---
Miralax 17 gm Po given: Patient complained of mild constipation. Oral fluids encouraged and activity was encouraged. Requested for Miralax. PRN Miralax 17 gm PO given as ordered. Will monitor for effectiveness throughout the day.
[2016-09-15] MEDS: BACLOFEN 10 MG TABLET PO SCH ×3 (09:00→21:21)
--- NOTE | 2016-09-15 09:32 | NUR ---
Re-assessment: No results noted from Miralax at this time. Will continue to monitor.
[2016-09-15 12:00] VITALS: BP 110/67
--- NOTE | 2016-09-15 15:44 | NUR ---
Therapist prompted client to attend daily group therapy sessions. Client stated she would try if she was feeling well enough to go.
[2016-09-15 16:00] VITALS: BP 104/62
--- NOTE | 2016-09-15 16:28 | NUR ---
Re-assessment: Per patient, PRN Vistaril was effective in reducing anxiety.
[2016-09-15] MEDS ORDERED: BISACODYL 5 MG TABLET.DR PO PRN (16:30)
[2016-09-15] MEDS: HYDROXYZINE PAMOATE 25 MG CAPSULE PO PRN (17:27)
--- NOTE | 2016-09-15 17:28 | NUR ---
Vistaril 50 mg PO given: Patient complained of feeling anxious. Also complained of stuffy nose and watery eyes. Redirected patient with non-pharmacological intervention. Medicated patient with Vistaril 50 mg pO as ordered. Will monitor for effectiveness.
--- NOTE | 2016-09-15 18:52 | NUR ---
End of Shift Notes: Patient continues to be on 5-day Subutex and 5-day Ativan as ordered. No adverse reactions noted. VS monitored closely. No significant abnormalitites noted. Withdrawal symptoms were closely monitored. Initial COWS 2/CIWA 3. Patient presented with anxiety, mild agitation, fine tremors, mild sweats, chills, hot flashes and nasal stuffiness. Last COWS1/CIWA2. Patient was given Miralax 17 gm PO as ordered for constipation at 0832 with no result noted at this time. Medicated patient with Vistaril 50 mg at 1727 due to complains of anxiety with help after 1 hour. Per patient, Ativan and Subutex has been helping her with her withdrawal symptoms. Safety precautionsi n place. Able to participate in group and activity sessions. Compliant with care and treatment. All needs met and attended. Will continue to monitor closely.
--- NOTE | 2016-09-15 19:30 | NUR ---
START OF SHIFT Patient is a 31 yrs old female, admitted for ETOH/opiate/BZO dependency; patient continues on 5 day Ativan taper and 5 day Subutex taper as ordered. Last COWS=1 and CIWA=2.Pt has been compliant with medications,no adverse reactions noted,received in bed in a stable condition,no c/o pain or distress noted.All Safety measures in place and call light kept with in reach. Will continue to monitor.
[2016-09-15 20:00] VITALS: BP 103/71
[2016-09-15] MEDS: TOPIRAMATE 100 MG TABLET PO SCH (21:20)
[2016-09-15] MEDS: DICYCLOMINE HCL 20 MG TABLET PO SCH (21:20)
[2016-09-15] MEDS: DOCUSATE SODIUM 250 MG CAPSULE PO SCH (21:21)
[2016-09-16] VITALS: BP 82/50
[2016-09-16 04:00] VITALS: BP 90/52
--- NOTE | 2016-09-16 06:48 | NUR ---
END OF SHIFT Patient is a 31 yrs old female, admitted for ETOH/opiate/BZO dependence, patient continues on 5 day Ativan taper and 5 day Subutex taper as ordered. Last COWS=0 and CIWA=1at 0400.Pt has been compliant with medications,no adverse reactions noted, Pt is in a stable condition,no c/o pain or distress noted. No PRN meds given last night.Pt slept 8 hrs,fluid intake was 1535 mls,voided x 3.All Safety measures in place and call light kept with in reach. Will continue to monitor.
--- NOTE | 2016-09-16 07:40 | NUR ---
Start of shift note; Received report from night nurse. Patient is a 31 year old female admitted on 09/12/16 for ETOH/Opiate withdrawals. Patient was placed on 5 day Ativan and 5 day Subutex taper. Patient noted to be allergic to PCN and Trazodone. Patient reported history of polycystic ovarian syndrome, jaw fracture, PTSD, ADHD, anxiety and depression. Patient slept for 8 hours. Patient is currently resting with eyes closed ,respirations even and unlabored. All safety measures secured. Will continue to monitor patient.
[2016-09-16 08:00] VITALS: BP 102/72
[2016-09-16] MEDS: DOXYCYCLINE HYCLATE 100 MG TABLET PO SCH ×2 (08:03→21:29)
[2016-09-16] MEDS: DICYCLOMINE HCL 20 MG TABLET PO SCH ×3 (08:03→21:29)
[2016-09-16] MEDS: SPIRONOLACTONE 50 MG TABLET PO SCH ×2 (08:03→17:05)
[2016-09-16] MEDS: FOLIC ACID 1 MG TABLET PO SCH (08:03)
[2016-09-16] MEDS: CLONIDINE HCL 0.1 MG TABLET PO SCH ×3 (08:04→21:00)
[2016-09-16] MEDS: BACLOFEN 10 MG TABLET PO SCH (08:04)
[2016-09-16] MEDS: GABAPENTIN 400 MG CAPSULE PO SCH (08:04)
[2016-09-16] MEDS: MULTIVITAMINS,THERAPEUTIC TABLET PO SCH (08:04)
[2016-09-16] MEDS: THIAMINE HCL 100 MG TABLET PO SCH (08:04)
[2016-09-16] MEDS: NEOMY/BACITRAC/POLYMI OINT 28.35 GM TUBE TOP SCH ×2 (08:08→16:33)
[2016-09-16] MEDS ORDERED: BUPRENORPHINE HCL 2 MG TAB.SUBL SL SCH (09:00)
[2016-09-16] MEDS ORDERED: LORAZEPAM 1 MG TABLET PO SCH (09:00)
[2016-09-16 12:00] VITALS: BP 97/68
[2016-09-16] MEDS: BUPRENORPHINE HCL 2 MG TAB.SUBL SL SCH ×2 (15:22→21:00)
[2016-09-16] MEDS: LORAZEPAM 1 MG TABLET PO SCH ×2 (15:23→21:29)
[2016-09-16] MEDS: BACLOFEN 20 MG TABLET PO SCH ×2 (15:23→21:29)
[2016-09-16] MEDS: GABAPENTIN 300 MG CAPSULE PO SCH ×2 (15:23→21:29)
[2016-09-16 16:00] VITALS: BP 98/68
--- NOTE | 2016-09-16 18:20 | NUR ---
End of shift note; Patient is AOX4. Patient is a 31 year old female admitted on 09/12/16 for ETOH/Opiate withdrawals. Patient was placed on 5 day Ativan and 5 day Subutex taper. Patient noted to be allergic to PCN and Trazodone. Patient reported history of polycystic ovarian syndrome, jaw fracture, PTSD, ADHD, anxiety and depression. Patient remained compliant with treatment plan. Medications were effective in reducing withdrawal symptoms. All safety measures secured. Met all needs.
--- NOTE | 2016-09-16 19:45 | NUR ---
START OF SHIFT NOTE Pt is a 31 y/o female admitted for ETOH, Heroin, Ativan, Cocaine, and Marijuana dependence and use. Pt has an allergy to PCN and Trazodone. Per day shift nurse pt is on a 5 day Ativan and Subutex taper and is tolerating medication well with no s.e or a/r reported. Pt didn't receive any PRNS during the day shift. Last COW: 3 and CIWA: 2 (1600). At this time pt is asleep in room with no signs of discomfort/distress noted. Further assessment will take place once the pt is awake. All safety measures in place. Will continue to monitor.
[2016-09-16 20:00] VITALS: BP 106/53
[2016-09-16] MEDS: DOCUSATE SODIUM 250 MG CAPSULE PO SCH (21:29)
[2016-09-16] MEDS: TOPIRAMATE 100 MG TABLET PO SCH (21:31)
--- NOTE | 2016-09-16 21:46 | NUR ---
NURSING NOTE Pt's blood pressure at this time is 106/53 and Heart rate is 51 bpm (after 3rd attempt). Upon entering the pt's room she was found asleep in bed. Pt did not wake up to the sound of her name being called. Pt's breathing was shallow but even and unlabored. Pt had to be slightly shaken to arouse her. Pt was a/o x 4, however due to a low blood pressure and heart rate scheduled Subutex 2 mg and Clonidine 0.1 mg had to be held. MD notified. No new orders given. Pt was informed that medication was being held and that her next scheduled dose was at 0900 the next day. Pt verbalized an understanding. Pt was encouraged to notify staff of any changes in condition or of any concerns. Pt verbalized an understanding. All safety measures in place. Will continue to monitor.
[2016-09-17] VITALS: BP 108/69
[2016-09-17] MEDS: HYDROXYZINE PAMOATE 25 MG CAPSULE PO PRN ×2 (01:06→21:35)
--- NOTE | 2016-09-17 01:06 | NUR ---
ROBAXIN, MOTRIN, VISTARIL PRN ADMINISTRATION Pt reported having generalized pain and aches along with anxiety. Robaxin 750 mg PO PRN, Motrin 400 mg PO PRN, and Vistaril 50 mg PO PRN was given. Pt was encouraged to notify staff of any changes in condition or of any concerns. Pt verbalized an understanding. All safety measures in place. Will monitor for effectiveness.
[2016-09-17] MEDS: METHOCARBAMOL 750 MG TABLET PO PRN ×2 (01:07→21:35)
[2016-09-17] MEDS: IBUPROFEN 400 MG TABLET PO PRN (01:07)
--- NOTE | 2016-09-17 02:06 | NUR ---
ROBAXIN, MOTRIN, AND VISTARIL PRN REASSESSMENT Pt is asleep in bed with no signs of pain/discomfort or anxiety noted. Breathing is even and unlabored. Respirations are 14 breaths per minute. PRNS effective. All safety measures in place. Will continue to monitor.
--- NOTE | 2016-09-17 04:00 | NUR ---
VITALS REFUSED /COW AND CIWA DEFERRED Pt refused to have vitals taken at this time. Pt was encouraged x 3 with risks and benefits explained, but the pt still refused. COW and CIWA assessment deferred until pt is awake. All safety measures in place. Will continue to monitor. Addendum: 09/17/16 at 0501 by GRETCHEN NICHOLE LVN Amended: Links added.
--- NOTE | 2016-09-17 06:54 | NUR ---
END OF SHIFT NOTE Pt is a 31 y/o female admitted for ETOH, Heroin, Ativan, Cocaine, and Marijuana dependence and use. Pt has an allergy to PCN and Trazodone. Pt continues on a 5 day Ativan and Subutex taper and is tolerating medication well with no s.e or a/r reported. Pt received Robaxin 750 mg PO PRN, Vistaril 50 mg PO PRN, and Motrin 400 mg PO PRN during the shift. Last COW: 5 and CIWA:7 (0000). Pt slept for a total of 5 hours. All safety measures in place. Will endorse to the oncoming nurse.
[2016-09-17 08:00] VITALS: BP 109/71
--- NOTE | 2016-09-17 08:00 | NUR ---
START OF SHIFT NOTE Received report from night nurse, 31 year old female admitted on 09/12/16 for ETOH/Opiate withdrawals. Pt cont with 5 day Ativan and 5 day Subutex taper. Pt reported PMH of polycystic ovarian syndrome, jaw fracture, PTSD, ADHD, anxiety and depression. Per endorsement pt received PRN Motrin,Vistaril, Robaxin, slept for 5 hours, and Last CIWA-7, COWS-5. Pt is currently resting with eyes closed respirations even and unlabored. All safety measures in placed, call light within reach. Will cont to monitor.
[2016-09-17] MEDS ORDERED: LORAZEPAM 1 MG TABLET PO SCH (09:00)
[2016-09-17] MEDS ORDERED: BUPRENORPHINE HCL 2 MG TAB.SUBL SL SCH (09:00)
[2016-09-17] MEDS: DOXYCYCLINE HYCLATE 100 MG TABLET PO SCH (09:14)
[2016-09-17] MEDS: FOLIC ACID 1 MG TABLET PO SCH (09:14)
[2016-09-17] MEDS: GABAPENTIN 300 MG CAPSULE PO SCH ×3 (09:14→21:34)
[2016-09-17] MEDS: BACLOFEN 20 MG TABLET PO SCH ×3 (09:14→21:36)
[2016-09-17] MEDS: MULTIVITAMINS,THERAPEUTIC TABLET PO SCH (09:14)
[2016-09-17] MEDS: THIAMINE HCL 100 MG TABLET PO SCH (09:14)
[2016-09-17] MEDS: DICYCLOMINE HCL 20 MG TABLET PO SCH ×3 (09:15→21:36)
[2016-09-17] MEDS: CLONIDINE HCL 0.1 MG TABLET PO SCH ×3 (09:15→21:35)
[2016-09-17] MEDS: SPIRONOLACTONE 50 MG TABLET PO SCH ×2 (09:16→16:48)
[2016-09-17] MEDS: NEOMY/BACITRAC/POLYMI OINT 28.35 GM TUBE TOP SCH ×2 (09:17→16:48)
[2016-09-17] MEDS ORDERED: MAGNESIUM CITRATE 296 ML BOTTLE PO ONE (11:30)
[2016-09-17] MEDS ORDERED: BISACODYL 5 MG TABLET.DR PO PRN (11:30)
[2016-09-17] MEDS ORDERED: BISACODYL 10 MG SUPP.RECT RC PRN (11:30)
[2016-09-17] MEDS ORDERED: FLEET ENEMA 133 ML BOTTLE RC PRN (11:30)
[2016-09-17 12:00] VITALS: BP 95/64
--- NOTE | 2016-09-17 15:00 | NUR ---
CLONIDINE HELD Pt noted with decreased blood pressure 90/64 Clonidine held as ordered. Will cont to monitor.
--- NOTE | 2016-09-17 15:38 | NUR ---
CARE ENDORSED All pertinent information given and care endorsed to nurse in charge.
--- NOTE | 2016-09-17 15:42 | NUR ---
ASSUMED CARE assumed care for client from primary nurse, all pertinent information discussed. will continue to monitor closely. safety measures in place.
[2016-09-17 16:55] VITALS: BP 101/66
[2016-09-17] MEDS ORDERED: CLON0.1T14 PO (17:07)
[2016-09-17] MEDS ORDERED: DIPH50CA37 PO (17:07)
[2016-09-17] MEDS ORDERED: GABA-534 PO (17:07)
[2016-09-17] MEDS ORDERED: BACL20TA PO (17:07)
[2016-09-17] MEDS ORDERED: HYDR-3895 PO (17:07)
[2016-09-17] MEDS ORDERED: IBUP-1953 PO (17:07)
[2016-09-17] MEDS ORDERED: DICY20TA28 PO (17:07)
--- NOTE | 2016-09-17 18:54 | NUR ---
END OF SHIFT Client is a 31 year old female admitted for alcohol, benzodiazepine and heroin withdrawal. Client is schedule for discharge tomorrow, urine drug screen not collected. Client continues to present with depressed mood, flat affect, last CIWA 2/COWS 2.Client was compliant with 2/3 of group therapy. Seizure precautions. Adequate intake 2000mL, void x 4. Safety measures in place, call light within reach, side rails up x2, bed locked and in low position. Endorsed to incoming nurse.
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
[2016-09-17 20:00] VITALS: BP 129/82
[2016-09-17] MEDS: DOCUSATE SODIUM 250 MG CAPSULE PO SCH (21:35)
--- NOTE | 2016-09-17 21:35 | NUR ---
PRN ROBAXIN/VISTARIL Pt complains of body aches and anxiety. PRN Robaxin and Vistaril administered as ordered. Breathing even and unlabored, safety measures in place. Will monitor.
[2016-09-17] MEDS: TOPIRAMATE 100 MG TABLET PO SCH (21:36)
--- NOTE | 2016-09-17 22:35 | NUR ---
PRN ROBAXIN/VISTARIL REASSESSMENT PRN medications effective. Pt reports decrease in body aches and anxiety. Breathing even and unlabored, safety measures in place. Will continue to monitor.
[2016-09-17 22:56] LABS: *AMPHETAMINE, URINE NEGATIVE (NEGATIVE); *BARBITURATE, URINE NEGATIVE (NEGATIVE); *CANNABINOID, URINE NEGATIVE (NEGATIVE); *COCCAINE, URINE NEGATIVE (NEGATIVE); *OPIATE, URINE NEGATIVE (NEGATIVE); *PHENCYCLIDINE SCREEN,URINE NEGATIVE (NEGATIVE)
--- NOTE | 2016-09-18 | NUR ---
VITALS REFUSED, COWS/CIWA DEFERRED 0000 vitals refused by pt at beginning of shift. Pt lying in bed with eyes closed noted to be asleep. COWS, CIWA deferred d/t pt asleep. Respirations 16, breathing even and unlabored. Safety measures in place. Will monitor.
[2016-09-18] MEDS: IBUPROFEN 400 MG TABLET PO PRN (01:38)
--- NOTE | 2016-09-18 01:38 | NUR ---
PRN MOTRIN/BENADRYL Pt complains of headache / and complains of inability to sleep. PRN Motrin and Benadryl administered as ordered. Breathing even and unlabored, safety measures in place. Will monitor effectiveness.
--- NOTE | 2016-09-18 02:38 | NUR ---
PRN MOTRIN/BENADRYL REASSESSMENT PRN medications effective. Pt lying in bed with eyes closed noted to be asleep. No facial grimacing noted. Safety measures in place. Will monitor.
--- NOTE | 2016-09-18 04:00 | NUR ---
VITALS REFUSED, COWS/CIWA DEFERRED 0400 vitals refused by pt at beginning of shift. Pt lying in bed with eyes closed noted to be asleep. COWS, CIWA deferred d/t pt asleep. Respirations 16, breathing even and unlabored. Safety measures in place. Will continue to monitor.
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
[2016-09-18 08:00] VITALS: BP 94/53
--- NOTE | 2016-09-18 08:00 | NUR ---
Vital signs Pt reported a pain level of 5/10 to the [employer] during vital signs assessment. Upon reassessment, pt noted to be sleeping. Will continue to monitor pt and administer medication as needed for pain.
--- NOTE | 2016-09-18 10:01 | NUR ---
Late administration Pt requested meds be administered late so she can get extra sleep. Will continue to monitor pt.
[2016-09-18 10:05] VITALS: BP 102/70
[2016-09-18] MEDS: GABAPENTIN 300 MG CAPSULE PO SCH ×2 (10:11→15:30)
[2016-09-18] MEDS: CLONIDINE HCL 0.1 MG TABLET PO SCH (10:11)
[2016-09-18] MEDS: THIAMINE HCL 100 MG TABLET PO SCH (10:12)
[2016-09-18] MEDS: BACLOFEN 20 MG TABLET PO SCH ×2 (10:12→15:30)
[2016-09-18] MEDS: MULTIVITAMINS,THERAPEUTIC TABLET PO SCH (10:12)
[2016-09-18] MEDS: DICYCLOMINE HCL 20 MG TABLET PO SCH ×2 (10:12→15:30)
[2016-09-18] MEDS: FOLIC ACID 1 MG TABLET PO SCH (10:12)
[2016-09-18] MEDS: SPIRONOLACTONE 50 MG TABLET PO SCH (10:12)
[2016-09-18] MEDS: NEOMY/BACITRAC/POLYMI OINT 28.35 GM TUBE TOP SCH (10:13)
[2016-09-18 12:00] VITALS: BP 94/57
[2016-09-18 16:00] VITALS: BP 110/73
[2016-09-18] MEDS ORDERED: CLONIDINE HCL 0.1 MG TABLET PO PRN (16:00)
[2016-09-18] MEDS ORDERED: BACLOFEN 20 MG TABLET PO PRN (16:00)
--- NOTE | 2016-09-18 16:18 | NUR ---
Client was prompted to attend daily group meetings at 11am and 3:30pm. Client stated that she is not feeling up going it at this time.
--- NOTE | 2016-09-18 17:33 | NUR ---
Discharge Note Pt was admitted for ETOH, opiate and benzo dependence. Pt has a recent COWS of 2 and CIWA of 1. VS are WNL. Pt states that she feels ready for discharge. Pt is refusing to go to treatment. Pt states "I have been to almost all of them, I know what I'm doing. 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 Pt discharge packet, prescriptions, valuables and all belongings returned to pt. Pt ID band removed, pt ambulated off of unit with [facility], left facility via [facility] for home.
== END 2016-09-18 17:33 | disposition home or self-care (01) | DRG 895 ==
LOC: SRC 09-12 00:14
PROVIDERS: ADMIT Internal Medicine; ATTEND Internal Medicine
PROC: HZ2ZZZZ Detoxification Services for Substance Abuse Treatment (ICD-10-PCS; principal; 2016-09-12)
PROC: HZ31ZZZ Individual Counseling for Substance Abuse Treatment, Behavioral (ICD-10-PCS; 2016-09-13)
PROC: HZ41ZZZ Group Counseling for Substance Abuse Treatment, Behavioral (ICD-10-PCS; 2016-09-14)
DX: F10.230 Alcohol dependence with withdrawal, uncomplicated (principal); F14.20 Cocaine dependence, uncomplicated; E87.1 Hypo-osmolality and hyponatremia; K70.10 Alcoholic hepatitis without ascites; F13.230 Sedative, hypnotic or anxiolytic dependence with withdrawal, uncomplicated; F11.23 Opioid dependence with withdrawal; Y90.0 Blood alcohol level of less than 20 mg/100 ml; E86.0 Dehydration; J00 Acute nasopharyngitis [common cold]; L70.0 Acne vulgaris; E28.2 Polycystic ovarian syndrome; F17.210 Nicotine dependence, cigarettes, uncomplicated; Z81.8 Family history of other mental and behavioral disorders; Z81.1 Family history of alcohol abuse and dependence; Z87.81 Personal history of (healed) traumatic fracture; F41.9 Anxiety disorder, unspecified; F90.9 Attention-deficit hyperactivity disorder, unspecified type; E87.8 Other disorders of electrolyte and fluid balance, not elsewhere classified; F32.9 Major depressive disorder, single episode, unspecified; G43.909 Migraine, unspecified, not intractable, without status migrainosus; K59.03 Drug induced constipation; E83.42 Hypomagnesemia; F12.90 Cannabis use, unspecified, uncomplicated
CPT/HCPCS: 36415; 70030-TC; 71010; 80307; 80349; 80353; 80361; 83690; 83735; 84100; 84443; 84703; 85025; 86403; 86580; 86592; 86705; 86803; 87070; 87340; 87400; 87806; A4663; G0480; J7030; Q0162; Q0163

== ENCOUNTER 2017-08-01 00:10 | Inpatient (IN) | payer BC, OTHER ==
--- NOTE | 2017-07-31 22:50 | NUR ---
INTAKE ASSESSMENT BP: 112/72, HR:71, RR:16, SpO2:95% T:98 Pt is intoxicated and is in wheelchair d/t unsteady gait. Pt is stable and able to be admitted on the unit. Unit protocols regarding medications and vitals signs [id number] were explained. Pt able to verbalize understanding. Primary nurse to continue admission upon arrival on the unit.
[2017-07-31 23:45] VITALS: BP 100/69
--- NOTE | 2017-07-31 23:45 | NUR ---
Admission Patient is a 32 year old female who is being admitted for medically supervised withdrawal from Opiates- Heroin, Benzos- Xanax, and ETOH-Vodka and Beer. Patient is noted with alcohol smell, disheveled, unwashed, and uncombed hair. She is also noted to be intoxicated due to last drink noted prior to arrival and well as verbalizing of last use just prior to walking into hospital. She is noted with slurred and delayed speech and unsteady gait. She is noted to answer questions with one word answers with poor concentration. Patient states that her signs and symptoms of withdrawal include "everything, anxiety, chills, body aches, irritability, Nausea, vomiting, stomach cramps, insomnia." No history or seizures noted. Patient reports her current use as the followin. Heroin, for the past year using 4GM IV daily with last use 07/31/17 just prior to admission. 2. ETOH- Vodka drinking for the past year 750mls daily for one year. Patients last drink was just prior to arrival 07/31/17. 3. ETOH- Beer 12oz drinking for the past year 12 pack of 12oz cans with last last drink just prior to admission. 4. Xanax- for the past year- taking 4 bars of 2mg bars PO Daily with last use just prior to admission. Patient states that she is seeking treatment today she states "I need to stop using." She also goes on to states that her drug use as caused her to have decreased motivation causing her to lose her job and affect her social life. She has been to multiple treatment facilities and currently cannot remember the name of the last treatment facility. Patient has been able to stay sober for 3 years between the ages of 23 thru 26. Patient verbalizes the reason she relapsed is because she was bored and because of her increased cravings. Patient is supported by her friends and immediate family and is motivated to seek [facility] care. Vital signs noted as 98.1, 100/69, 16, 69, 99%, 0/10. Breathing even and non labored. Lung sounds clear with no cough noted. Bowel sounds hypoactive in all 4 quadrants. Skin noted intact. She verbalizes allergies to PCN and Trazodone, wishes to be full code, follows a regular diet. She is currently unemployed and living with her boyfriend in [place]. Past medical history is noted as Anxiety, Depression, PTSD, ADHD, and Polycystic ovarian syndrome. No home medications verbalized or noted with patient. Patient was educated and encouraged to participate in group therapy and individual therapy. All information reviewed with MD with orders placed. Labs to be rendered. PRN Medications available for increased signs and symptoms. Admission CIWA and COWS unable to be completed due to level of intoxication. Patient was placed on 1:1 for unsteady gait. Will continue plan of care as ordered.
[~2017-08-01] VITALS: Ht 172.7 cm; Wt 54.4 kg
[~2017-08-01 00:10] MED LIST changes: +BACL20TA PO; -Bupropion Hcl PO; +CLON0.1T14 PO; +DOXY100C2 PO; +GABA-534 PO; -Gabapentin PO; +HYDR-3895 PO; +IBUP-1953 PO; -Ibuprofen PO; -METH-33 PO; -PANT40TA2 PO; -TRAZ-144 PO
[2017-08-01] MEDS ORDERED: LORAZEPAM 1 MG TABLET PO PRN (00:45)
[2017-08-01] MEDS ORDERED: IBUPROFEN 400 MG TABLET PO PRN (00:45)
[2017-08-01] MEDS ORDERED: LOPERAMIDE HCL 2 MG CAPSULE PO PRN ×2 (00:45)
[2017-08-01] MEDS ORDERED: MAG HYDROX/AL HYDROX/SIMETH 30 ML LIQUID UDC PO PRN (00:45)
[2017-08-01] MEDS ORDERED: LORAZEPAM 2 MG/1 ML VIAL IM PRN (00:45)
[2017-08-01] MEDS ORDERED: CLONIDINE HCL 0.1 MG TABLET PO PRN (00:45)
[2017-08-01] MEDS ORDERED: BUPRENORPHINE HCL 2 MG TAB.SUBL SL PRN (00:45)
[2017-08-01] MEDS ORDERED: diphenhydrAMINE 50 MG CAPSULE PO PRN (00:45)
[2017-08-01] MEDS ORDERED: ONDANSETRON 4 MG/2 ML VIAL IM PRN (00:45)
[2017-08-01 01:05] LABS: *URINE HCG, QUAL NEGATIVE (NEGATIVE)
[2017-08-01 01:15] LABS: BASOPHILS % (AUTO) 0.3 % (0.0-2.0); HEMATOCRIT 42.3 % (31.2-41.9); HEMOGLOBIN 14.5 g/dL (10.9-14.3); LYMPHOCYTES # (AUTO) 0.5 K/uL (20.0-40.0); LYMPHOCYTES % (AUTO) 6.5 % (20.5-51.5); MEAN CORPUSCULAR HEMOGLOBIN 32.2 uug (24.7-32.8); MEAN CORPUSCULAR HGB CONC 34 g/dL (32.3-35.6); MONOCYTES % (AUTO) 0.4 % (0.0-11.0); NEUTROPHILS # (AUTO) 6.6 K/uL (1.8-8.9); NEUTROPHILS % (AUTO) 92.8 % (38.5-71.5); PLATELET COUNT (AUTO) 268 K/uL (179-408); RED BLOOD CELL COUNT(AUTO) 4.49 MIL/uL (3.63-4.92); WHITE BLOOD COUNT (AUTO) 7.2 K/uL (3.8-11.8)
[2017-08-01 01:19] LABS: *AMPHETAMINE, URINE NEGATIVE (NEGATIVE); *BARBITURATE, URINE NEGATIVE (NEGATIVE); *CANNABINOID, URINE NEGATIVE (NEGATIVE); *COCCAINE, URINE NEGATIVE (NEGATIVE); *OPIATE, URINE NEGATIVE (NEGATIVE); *PHENCYCLIDINE SCREEN,URINE NEGATIVE (NEGATIVE)
[2017-08-01 01:48] LABS: BILIRUBIN,TOTAL 0.2 mg/dL (0.2-1.0); CREATININE 0.8 mg/dL (0.6-1.3); MAGNESIUM 2.1 mg/dL (1.8-2.4); POTASSIUM 3.8 mmol/L (3.5-5.1); TOTAL PROTEIN, SERUM 7.9 g/dL (6.4-8.2)
[2017-08-01 01:58] LABS: THYROID STIMULATING HORMONE 0.354 mIU/mL (0.358-3.740)
[2017-08-01 04:30] VITALS: BP 96/55
--- NOTE | 2017-08-01 06:09 | NUR ---
Clarification of Usage Patient is noted awake and is able to verbalize correct amount of her substance use: 1. Heroin, relapsing for one year, using 2GM IV Daily. Last use was 07/28/17 2. ETOH-Vodka as stated 3. ETOH- Beer as stated 4. Benzo- Ativan, relapsing for one year, using 1mg TID with last dose noted 07/28/17. Patient also reported most recent sober-living was [facility] in [place]. Relayed to CN. Will inform .
[2017-08-01] MEDS: LORAZEPAM 1 MG TABLET PO PRN (06:31)
--- NOTE | 2017-08-01 06:34 | NUR ---
PRN Medication Administration patient is noted in bed, restless, verbalizing increased anxiety, tremulous, intermittent nausea, and increased cravings. patient is verbalizing wanting to leave AMA. She verbalizes she will wait to speak with administration but is convinced she will leave later today. She states "I'm just not ready to get sober. all I can think about is getting fucked up." CIWA noted to be 17. PRN Ativan 2mg administered. Will continue to monitor.
--- NOTE | 2017-08-01 07:24 | NUR ---
End of Shift Patient is noted in bed sleeping but easily aroused to verbal stimuli. Breathing even and non labored. Patient was admitted for medical supervision of Opiate, Benzo, and ETOH withdrawal. PRN Medications available for increased signs and symptoms of withdrawal. Skin noted intact. Patient received PRN Ativan 2mg for elevated CIWA of 17. She was placed on 1:1 for unsteady gait. Patient noted to sleep a total of 5 hours. Patient is high risk for AMA. All needs attended to promptly. Will endorse to continue plan of care as ordered.
--- NOTE | 2017-08-01 07:34 | NUR ---
START OF SHIFT & Reassess PRN Ativan 2mg PO Endorse rcvd from incoming nurse, client is in bed, lying on her left side, sounds asleep, difficult to arouse, RR 16, spO2 @ 99% on RA. 1:1 sitter at bedside promoting safety, client was intoxicated upon admission with unsteady gait. Unable to reassess PRN Ativan 2mg, will continue to monitor. Last CIWA 17 @ 0634. Client slept 4 hrs. Seizure precautions in place. Bed in lowest/locked position. Side rails x 2 up/padded. Call light within reach.
[2017-08-01] MEDS: MULTIVITAMINS,THERAPEUTIC TABLET PO SCH (09:00)
[2017-08-01] MEDS ORDERED: TRAZODONE 50 MG TABLET PO PRN (10:30)
[2017-08-01] MEDS ORDERED: PRAZOSIN HCL 1 MG CAPSULE PO PRN (11:30)
[2017-08-01] MEDS ORDERED: NICOTINE 14 MG/24HR PATCH TD PRN (11:30)
[2017-08-01] MEDS ORDERED: NICOTINE POLACRILEX 4 MG GUM-PK OF TEN BC PRN (11:30)
[2017-08-01] MEDS: ONDANSETRON ODT 4 MG TAB.RAPDIS SL PRN ×2 (11:36→20:11)
[2017-08-01] MEDS: METHOCARBAMOL 750 MG TABLET PO PRN ×2 (11:36→20:11)
[2017-08-01] MEDS: DICYCLOMINE HCL 20 MG TABLET PO PRN ×2 (11:36→20:11)
[2017-08-01] MEDS: ACETAMINOPHEN 325 MG TABLET PO PRN (11:36)
--- NOTE | 2017-08-01 11:36 | NUR ---
PRN Bentyl 20mg PO, Robaxin 750mg PO, Tylenol 650mg PO, Zofran 4mg SL administered for abdominal spasms, myalgia on BLE, WHITE 7/10, and nausea respectively. Call light within reach.
[2017-08-01 12:00] VITALS: BP 113/67
[2017-08-01] MEDS: LORAZEPAM 1 MG TABLET PO SCH ×3 (12:03→20:12)
[2017-08-01] MEDS: BUPRENORPHINE HCL 2 MG TAB.SUBL SL SCH ×3 (12:05→20:12)
--- NOTE | 2017-08-01 12:36 | NUR ---
Reassess PRN Bentyl 20mg PO, Robaxin 750mg PO, Tylenol 650mg PO, Zofran 4mg SL, client reports very little relief from abdominal spasms and myalgia on BLE, WHITE diminished to 3/10, but she refused Motrin at this time, and nausea improved. Will continue to monitor. Call light within reach.
--- NOTE | 2017-08-01 15:05 | NUR ---
Client had one episode of emesis, michael litzy and saltine crackers at bedside. Will continue to monitor, too soon to administer second dose of Zofran 4mg SL. Call light within reach.
--- NOTE | 2017-08-01 15:40 | NUR ---
Client denies any more episodes of emesis. Will continue to monitor.
[2017-08-01 17:13] VITALS: BP 109/63
--- NOTE | 2017-08-01 19:15 | NUR ---
Start of Shift Note: Received patient in bed awake alert & oriented x4. Patient is a 32 y.o female admitted for medically supervised withdrawal from Heroin , Ativan & ETOH. Pt appears drowsy, anxious, noted with poor eye contact & concentration. Patient presented with restlessness, sweating, chills, fine tremors, reports nausea, stomach cramps, constipation, 7/10 headache and 7/10 body aches. Patient is on 5-day Subutex and 5-day Ativan taper that started today and is tolerating well. Pt received PRN Zofran, Bentyl, Tylenol, & Robaxin during day shift and were effective per report, Last COWS 18 CIWA 18. Continue to encourage pt to increase fluid intake as tolerated for hydration. Will continue to encourage participation in group therapy to prevent relapse. Educated patient of current plan of care for the night and medication regimen. Safety precaution in place. Bed locked in lowest position. Both side rails up. Call light within pt's reach. Will continue to monitor patient.
--- NOTE | 2017-08-01 19:28 | NUR ---
END OF SHIFT Endorse given to incoming nurse, client is in bed, a/o x 4. Client continues to present with depresses mood, flat affect, anxious, irritable, chills, colds, body aches, nausea, headache, decreased appetite, and fatigue. Client is not compliant with group therapy. Client consumes ~50% meals. Adequate PO fluid 1710mL, void x 3. Last CIWA 18 / COWS 18 @ 1700. PRN administered and noted per protocol. Client is not compliant with group therapy. Seizure precautions in place. Bed in lowest/locked position. Side rails x 2 up/padded. Call light within reach.
[2017-08-01 20:00] VITALS: BP 133/61
[2017-08-01] MEDS: GABAPENTIN 300 MG CAPSULE PO SCH (20:11)
[2017-08-01] MEDS: IBUPROFEN 600 MG TABLET PO PRN (20:11)
[2017-08-01] MEDS: MIRALAX 17 GM POWD.PACK PO PRN (20:12)
--- NOTE | 2017-08-01 20:12 | NUR ---
PRN Administration Pt presented with nausea, stomach cramps, moderately severe headache & 7/10 generalized body aches. Pt appears restless & with noted facial grimacing. No active vomiting was noted. PRN Bentyl, Motrin, Robaxin & Zofran administered as ordered. Will monitor for effectiveness of medications.
--- NOTE | 2017-08-01 21:12 | NUR ---
PRN Reassessment Patient verbalized relief from stomach cramps & nausea & decreased in pain from 7/10 to 3/10. Patient also complained of relief from headache after medication administration. Pt is in bed at this time and appears calm & comfortable. No facial grimacing noted. Safety measures in place Will continue to monitor patient.
[2017-08-02] VITALS: BP 142/75
--- NOTE | 2017-08-02 07:24 | NUR ---
End of Shift Note: Continue to closely monitor patient. Patient still asleep at this time. Pt remains alert & oriented x4. Patient remained in her room most of the night. During my shift, she presented with restlessness, sweating, chills, fine tremors, reports nausea, stomach cramps, constipation, headache and body aches. She is currently on a 5-day Subutex and 5-day Ativan taper and tolerating well. Pt was medicated with PRN Bentyl for stomach cramps, Miralax for constipation, Motrin for headache, Robaxin for body aches and Zofran for nausea during my shift and were all effective. Last COWS 13 CIWA 16. Pt remains compliant with medications. Encourage to increase fluid intake as well as tolerated. Vitals were monitored and noted WNL. Non pharmacological intervention utilized. Pt slept intermittently for a total of 5 hours. Fluid intake: 473 ml, Voided 2x with no bowel movement. All needs attended & met. Safety measures in place. Will endorse pt to day shift nurse.
--- NOTE | 2017-08-02 07:33 | NUR ---
Start of Shift Notes: Received patient in her room. Awake, alert and oriented x 4. Seen sitting down, eating a chocolate pudding with her fingers. Offered to use a spoon. Patient states "No, I like it this way." She appears disheveled and room appears messy. Encouraged maintenance of personal hygiene and space. Patient is a 32 year old female admitted for opiate/ETOH/BZO withdrawal who was placed on a 5-day Subutex and 5-day Ativan taper as ordered. No adverse reactions noted. She denies any N/V at this time. She states "I think what is contributing to my nausea is cause I'm only wearing one contact and I need to call someone to bring the rest in." Patient was placed on the phone call list. Offered to remove her contact but states "No, I will deal with it." Educated patient on her current plan of care for the day and her medication regimen. Encouraged oral fluid intake and encouraged group participation to learn new skills to prevent relapse. PRN Mortin, Robaxin, Zofran, Miralax and Bentyl were given during the night. COWS 13/CIWA 16. Slept for 5 hours. Will continue to monitor closely.
[2017-08-02 08:00] VITALS: BP 112/66
[2017-08-02] MEDS: METHOCARBAMOL 750 MG TABLET PO PRN ×2 (08:13→20:45)
[2017-08-02] MEDS: LORAZEPAM 1 MG TABLET PO SCH ×3 (08:13→20:45)
--- NOTE | 2017-08-02 08:13 | NUR ---
Robaxin 750 mg PO given: Patient noted with complain of 7/10 generalized aching/myalgia related to withdrawal symptoms. Medicated patient with Robaxin 750 mg PO as ordered. Will monitor for effectiveness.
[2017-08-02] MEDS: GABAPENTIN 300 MG CAPSULE PO SCH ×3 (08:14→20:45)
[2017-08-02] MEDS: SPIRONOLACTONE 50 MG TABLET PO SCH (08:14)
[2017-08-02] MEDS: THIAMINE HCL 100 MG TABLET PO SCH (08:14)
[2017-08-02] MEDS: MULTIVITAMINS,THERAPEUTIC TABLET PO SCH (08:14)
[2017-08-02] MEDS: FOLIC ACID 1 MG TABLET PO SCH (08:14)
--- NOTE | 2017-08-02 08:24 | NUR ---
TB test not administered: Patient states she just recently received her TB test with negative results. Patient stated that the test was done recently within the last 3 months with negative results. Educated patient on the risk and benefits as well as the unit's policies and MD's orders. Patient still refused.
--- NOTE | 2017-08-02 08:50 | NUR ---
MD Communication: CIWA score Patient's CIWA 16, patient presented with anxiety, agitation, sweating, tremors and intermittent nausea. Notified MD Rocha. Per MD, continue current orders.
[2017-08-02] MEDS ORDERED: TUBERCULIN,PURIF.PROT.DERIV. 5 TU/0.1 ML TEST ID ONE ×2 (09:00)
[2017-08-02] MEDS ORDERED: BUPRENORPHINE HCL 2 MG TAB.SUBL SL SCH (09:00)
[2017-08-02] MEDS ORDERED: MULTIVITAMINS,THERAPEUTIC TABLET PO SCH (09:00)
--- NOTE | 2017-08-02 09:13 | NUR ---
Re-assessment: Robaxin Patient verbalizes that PRN Robaxin was effective in reducing myalgia. PL is now 04/27.
[2017-08-02] MEDS: ONDANSETRON ODT 4 MG TAB.RAPDIS SL PRN ×2 (10:06→20:45)
--- NOTE | 2017-08-02 10:06 | NUR ---
Zofran 4 mg SL given: Patient noted with complain of nausea. No vomiting noted. Patient states "It happened right after I smoked." Patient was discouraged from smoking and offered nicotine alternative. Patient states she will stay in her room for now and rest. Medicated patient with Zofran 4 mg SL as ordered. Will monitor for effectiveness.
--- NOTE | 2017-08-02 11:06 | NUR ---
Re-assessment: Zofran Patient states nausea has ceased. PRN Zofran was effective.
[2017-08-02 12:00] VITALS: BP 122/77
[2017-08-02 12:07] LABS: HEPATITIS B SURFACE AG Negative (Negative)
[2017-08-02] MEDS: BUPRENORPHINE HCL 2 MG TAB.SUBL SL SCH ×2 (14:07→20:45)
[2017-08-02 16:00] VITALS: BP 131/78
[2017-08-02] MEDS: ACETAMINOPHEN 325 MG TABLET PO PRN ×2 (17:23→20:45)
[2017-08-02] MEDS: MIRALAX 17 GM POWD.PACK PO PRN (17:25)
--- NOTE | 2017-08-02 17:25 | NUR ---
PRN TYLENOL/MIRALAX Patient was administered Tylenol 650mg PO for headache 07/28. Administered Miralax patient reports feeling constipated. Will endorse to primary nurse to f/u effectiveness of medication.
--- NOTE | 2017-08-02 18:25 | NUR ---
Re-assessment: Tylenol/Miralax Patient verbalizes that PRN Tylenol was effective in reducing patient's headache. She states that PL is now 03/30. PRN Miralax still with pending results.
--- NOTE | 2017-08-02 19:22 | NUR ---
End of Shift Notes: Patient continues to be on 5-day Subutex and 5-day Ativan as ordered. She is currently on day 2 of the taper and is tolerating taper well. VS monitored closely. No significant abnormalities noted. Withdrawal symptoms were closely monitored. Initial COWs 18/CIWA 16, patient presented with anxiety, agitation, gross tremors, sweating, nausea, myalgia, chills, hot flashes, fatigue, pupil dilation, yawning and restlessness. Medicated patient with Robaxin at 0813 and Zofran at 1006 with help after 1 hour. Last COWS 14/CIWA 13. Patient verbalizes that Subutex and Ativan has been effective in reducing her withdrawal symptoms. Unable to participate in group and activities due to her withdrawal symptoms. Appetite fair. Compliant with care and treatment. All needs met and attended. Will continue to monitor closely.
[2017-08-02 20:00] VITALS: BP 108/82
[2017-08-02] MEDS: IBUPROFEN 600 MG TABLET PO PRN (20:45)
--- NOTE | 2017-08-02 20:45 | NUR ---
PRN Administration Patient complained of moderate severe headache, 7/10 generalized body aches and nausea. Patient is in room and appears restless with facial grimacing noted. PRN Motrin, Tylenol, Robaxin & Zofran administered as ordered. Will monitor for effectiveness of medication.
--- NOTE | 2017-08-02 21:45 | NUR ---
PRN Reassessment Patient ambulating in the hallway and appears comfortable with no facial grimacing noted. PRN medication effective d/t pt verbalized decreased in pain from 7/10 to 3/10 body aches, relief from nausea & relief headache was also noted. Continue to encourage pt to increase fluid intake as tolerated. Safety measures in place. Will continue to monitor patient.
[2017-08-03 01:30] VITALS: BP 112/76
[2017-08-03] MEDS: DICYCLOMINE HCL 20 MG TABLET PO PRN (01:48)
[2017-08-03] MEDS: LORAZEPAM 1 MG TABLET PO PRN (01:48)
--- NOTE | 2017-08-03 01:48 | NUR ---
PRN Administration Patient woke up with complaints of stomach cramps, sweating, chills, anxiety, agitation & restlessness. CIWA 16 noted. B/P 112/76, NE 66 noted. PRN Ativan 2mg, Clonidine & Bentyl administered as ordered. Safety measures in place. Will continue to monitor patient.
--- NOTE | 2017-08-03 02:48 | NUR ---
PRN Reassessment Patient in bed with eyes close. Patient appears calm & comfortable with no facial grimacing noted. Unable to reassess Ativan at this time. Will reassess if pt awake. safety measures in place. Will continue to monitor patient.
--- NOTE | 2017-08-03 07:21 | NUR ---
End of Shift Note: Continue to closely monitor patient. Patient still asleep at this time. Pt remains alert & oriented x4. During my shift, she presented with restlessness, sweating, chills, fine tremors, reports nausea, stomach cramps, moderate severe headache and 7/10 body aches. She continues to receive her 5-day Subutex and 5-day Ativan taper and tolerating well. Pt was medicated with PRN Tylenol, Motrin, Robaxin, Zofran, MOM, Ativan, Bentyl & Clonidine during my shift. Last COWS 15 CIWA 16. Pt remains compliant with medications. Encourage to increase fluid intake as well as tolerated. Vitals were monitored and noted WNL. Non pharmacological intervention utilized. Pt slept for a total of 3 hours. Fluid intake: 500 ml, Voided 1x with no bowel movement. All needs attended & met. Safety measures in place. Will endorse pt to day shift nurse.
--- NOTE | 2017-08-03 07:58 | NUR ---
Start of shift Patient 32 y/o female admitted for medically supervised withdrawal of heroin and ETOH, opiates. Pt was on 5 day Ativan taper and Subutex taper, tolerating well. Patient A&O X4. Presents with restlessness, sweating, chills, fine tremors, reports nausea, stomach cramps, moderate severe headache and body aches. Last COWS 15, CIWA 16. Patient is compliant with medication regimen. Encourage pt to attend group therapies/sessions to learn new coping skills to prevent relapse. ALLERGIES: PCN, NEOMYCIN, TRAZODONE. FULL CODE. All safety precautions in place. Call light within reach. Will continue to monitor for withdrawal symptoms.
[2017-08-03 08:00] VITALS: BP 124/87
[2017-08-03] MEDS: THIAMINE HCL 100 MG TABLET PO SCH (09:08)
[2017-08-03] MEDS: GABAPENTIN 300 MG CAPSULE PO SCH ×2 (09:08→15:07)
[2017-08-03] MEDS: LORAZEPAM 1 MG TABLET PO SCH ×2 (09:08→12:24)
[2017-08-03] MEDS: MULTIVITAMINS,THERAPEUTIC TABLET PO SCH (09:08)
[2017-08-03] MEDS: FOLIC ACID 1 MG TABLET PO SCH (09:09)
[2017-08-03] MEDS: SPIRONOLACTONE 50 MG TABLET PO SCH (09:09)
[2017-08-03] MEDS: BUPRENORPHINE HCL 2 MG TAB.SUBL SL SCH ×3 (09:09→20:55)
[2017-08-03] MEDS ORDERED: LORAZEPAM 1 MG TABLET PO PRN ×2 (11:30)
[2017-08-03 12:00] VITALS: BP 111/88
[2017-08-03] MEDS: METHOCARBAMOL 750 MG TABLET PO PRN ×2 (12:24→20:52)
--- NOTE | 2017-08-03 12:27 | NUR ---
PRN ROBAXIN 750 MG PO FOR BODY ACHES #6
--- NOTE | 2017-08-03 13:30 | NUR ---
REASSESS- PT REPORTS BODY ACHES IMPROVED #3/
[2017-08-03] MEDS: ACETAMINOPHEN 325 MG TABLET PO PRN (15:07)
[2017-08-03] MEDS: DICYCLOMINE HCL 20 MG TABLET PO SCH ×2 (15:07→20:52)
--- NOTE | 2017-08-03 15:10 | NUR ---
PRN TYLENOL 650 MG PO FOR HEADACHE #8/10
[2017-08-03 16:00] VITALS: BP 121/64
--- NOTE | 2017-08-03 16:10 | NUR ---
REASSESS- HEADACHE PAIN NOW #5-6/10. SLIGHTLY IMPROVED.
[2017-08-03] MEDS ORDERED: LORAZEPAM 1 MG TABLET PO SCH ×2 (17:00→21:00)
--- NOTE | 2017-08-03 18:39 | NUR ---
End of shift Patient 32 y/o female admitted for medically supervised withdrawal of heroin and ETOH, opiates. Pt was on 5 day Ativan taper and Subutex taper, tolerating well. PRN given today; Robaxin, Tylenol. Patient A&O X4. Presents with restlessness, sweating, chills, fine tremors, reports nausea, stomach cramps, moderate severe headache and body aches. Last COWS 14, CIWA 16. Patient is compliant with medication regimen. Encourage pt to attend group therapies/sessions to learn new coping skills to prevent relapse. Pt did attend all group therapy sessions today. PO fluids 2354ml, voids x3, no BM. ALLERGIES: PCN, NEOMYCIN, TRAZODONE. FULL CODE. All safety precautions in place. Call light within reach. Will continue to monitor for withdrawal symptoms. Endorsed to PM shift.
--- NOTE | 2017-08-03 19:15 | NUR ---
Start of Shift Note: Continue to closely monitor patient. She is alert & oriented x4. Pt appears drowsy, anxious, noted with poor eye contact & concentration. Patient presented with restlessness, chills, fine tremors, reports stomach cramps, moderate severe headache and 8/10 body aches. Patient continues on her 5-day Subutex and 5-day Ativan taper and is tolerating well. Pt received PRN Tylenol & Robaxin during day shift and were effective per report. Last COWS 14 CIWA 17. Continue to encourage pt to increase fluid intake as tolerated for hydration. Will continue to encourage participation in group therapy to prevent relapse. Educated patient of current plan of care for the night and medication regimen. Safety precaution in place. Bed locked in lowest position. Both side rails up. Call light within pt's reach. Will continue to monitor patient.
[2017-08-03 20:00] VITALS: BP 120/72
[2017-08-03] MEDS: IBUPROFEN 600 MG TABLET PO PRN (20:52)
--- NOTE | 2017-08-03 20:52 | NUR ---
PRN Motrin & Robaxin Patient complained of moderate severe headache & 8/10 generalized body aches. Pt appears restless with facial grimacing noted. PRN Motrin & Robaxin administered as ordered. Will monitor for effectiveness of medications.
[2017-08-03] MEDS ORDERED: GABAPENTIN 300 MG CAPSULE PO SCH (21:00)
[2017-08-03] MEDS: CLONIDINE HCL 0.1 MG TABLET PO SCH (21:12)
--- NOTE | 2017-08-03 21:52 | NUR ---
PRN Reassessment Pt verbalized decreased in pain from 8/10 to 5/10 & slight relief from headache after PRN administration. Pt Patient noted in the hallway calm with no facial grimacing noted. Safety measures in place. will continue to monitor patient.
[2017-08-04 01:00] VITALS: BP 132/86
--- NOTE | 2017-08-04 01:04 | NUR ---
PRN Ativan & Benadryl Patient complains that she can't sleep and she is really anxious. Pt verbalized restlessness, irritability & mild headache. CIWA 10 noted at this time. PRN Ativan 1mg and Benadryl administered as ordered. Safety measures in place. Will monitor for effectiveness of medications.
--- NOTE | 2017-08-04 02:04 | NUR ---
PRN Reassessment Pt in bed with eyes close. Pt appears calm & comfortable in bed. no shortness of breath noted. Unable to assess CIWA at this time. Safety measures in place. Will continue to monitor patient.
--- NOTE | 2017-08-04 04:00 | NUR ---
Vitals/COWS/CIWA Deferred Patient in bed with eyes close. Patient requested not to be woken up for vitals at this time. Respiration even & unlabored. RR 16. Vitals/COWS/CIWA deferred to assess if pt is awake as ordered. Safety measures in place. Will continue to monitor patient.
--- NOTE | 2017-08-04 07:13 | NUR ---
End of Shift Note: Continue to closely monitor patient. Patient still asleep at this time. Pt remains alert & oriented x4. During my shift, she presented with restlessness, chills, fine tremors, reports stomach cramps, moderate severe headache and 8/10 body aches. She continues to receive her 5-day Subutex and 5-day Ativan taper with no problems. Pt was medicated with PRN Motrin, Robaxin, Ativan, & benadryl during my shift. Last COWS 10 CIWA 13. Pt remains compliant with medications. Encourage to increase fluid intake as well as tolerated. Vitals were monitored and noted WNL. Non pharmacological intervention utilized. Pt slept for a total of 6 hours. Fluid intake: 750 ml, Voided 2x with no bowel movement. All needs attended & met. Safety measures in place. Will endorse pt to day shift nurse.
--- NOTE | 2017-08-04 07:32 | NUR ---
Start of shift Patient 32 y/o female admitted for medically supervised withdrawal of heroin and ETOH, opiates. Pt is on a 5 day Ativan taper and Subutex taper, tolerating well. Patient A&O X4. Presents with restlessness, sweating, chills, fine tremors, reports nausea, stomach cramps, moderate severe headache and body aches. Last COWS 10, CIWA 13. Patient is compliant with medication regimen. Encourage pt to attend group therapies/sessions to learn new coping skills to prevent relapse. ALLERGIES: PCN, NEOMYCIN, TRAZODONE. FULL CODE. All safety precautions in place. Call light within reach. Will continue to monitor for withdrawal symptoms.
[2017-08-04 08:00] VITALS: BP 97/66
[2017-08-04] MEDS: SPIRONOLACTONE 50 MG TABLET PO SCH (08:35)
[2017-08-04] MEDS: MULTIVITAMINS,THERAPEUTIC TABLET PO SCH (08:36)
[2017-08-04] MEDS: BUPRENORPHINE HCL 2 MG TAB.SUBL SL SCH ×2 (08:36→20:31)
[2017-08-04] MEDS: LORAZEPAM 1 MG TABLET PO SCH ×3 (08:36→20:30)
[2017-08-04] MEDS: IBUPROFEN 600 MG TABLET PO PRN ×2 (08:36→23:08)
[2017-08-04] MEDS: METHOCARBAMOL 750 MG TABLET PO PRN ×2 (08:36→20:30)
[2017-08-04] MEDS: DICYCLOMINE HCL 20 MG TABLET PO SCH ×3 (08:36→20:30)
[2017-08-04] MEDS: GABAPENTIN 300 MG CAPSULE PO SCH ×3 (08:36→20:30)
[2017-08-04] MEDS: FOLIC ACID 1 MG TABLET PO SCH (08:37)
[2017-08-04] MEDS: CLONIDINE HCL 0.1 MG TABLET PO SCH ×2 (08:37→20:30)
--- NOTE | 2017-08-04 08:39 | NUR ---
PRN MORTIN 600 MG PO FOR HEADACHE #8/10 PRN ROBAXIN 750 MG PO FOR BODY ACHES
[2017-08-04] MEDS: THIAMINE HCL 100 MG TABLET PO SCH (09:38)
--- NOTE | 2017-08-04 09:40 | NUR ---
REASSESS MOTRIN- PT REPORTS HEADACHE #5/10 IMPROVED ROBAXIN- PT REPORTS BODY ACHES IMPROVED.
[2017-08-04 12:00] VITALS: BP 94/61
--- NOTE | 2017-08-04 13:02 | NUR ---
ENDORSED PT TO NURSE. ALL INFORMATION DISCUSSED OF TODAY'S EVENTS AND ASSESSMENTS.
--- NOTE | 2017-08-04 13:05 | NUR ---
RECEIVED CARE Received patient from primary nurse. All pertinent information discussed. Patient is in stable condition.
[2017-08-04] MEDS: DOCUSATE SODIUM 250 MG CAPSULE PO SCH (14:10)
[2017-08-04 16:00] VITALS: BP 105/68
--- NOTE | 2017-08-04 19:17 | NUR ---
END OF SHIFT NOTE Patient 32 year old female admitted for medically supervised withdrawal of heroin and ETOH, opiates. Pt is on a 5 day Ativan taper and Subutex taper, tolerating well. Patient A&O X4. Presents with restlessness, sweating, chills, fine tremors, reports nausea, stomach cramps, moderate severe headache and body aches. Patient received PRN Robaxin and Motrin from primary nurse. Received care at 1305. Pt room is cluttered with empty bottles, wrappers, and food spilled on the floor. Pt is disheveled and odorous. Patient is compliant with medication regimen. Encourage pt to attend group therapies/sessions to learn new coping skills to prevent relapse. All safety measures in place, call light within reach. Endorse pt to night nurse in stable condition.
--- NOTE | 2017-08-04 19:30 | NUR ---
START OF SHIFT Pt is a 32 y/o female admitted on 08/01/17 for ETOH, benzo and opiate withdrawl. Pt is on a 5 day Ativan and Subutex taper, tolerating well. Last COWS 12 and CIWA 12 and no PRNs administered. Upon assessment pt presents with anxiety, agitation, difficulty thinking clearly, difficulty concentrating, flushed skin, sweats, chills, stomach cramps, nausea without vomiting, restlessness, difficulty falling asleep and staying asleep, body aches, headache, constipation, photosensitivity, irritability, disheveled appearance, and unkempt room. Pt is refusing side rail padding, educated risks and pt verbalized understanding. Medications due. Safety measures in place. Call light within reach. Will continue to monitor.
[2017-08-04 20:00] VITALS: BP 104/62
[2017-08-04] MEDS: ONDANSETRON ODT 4 MG TAB.RAPDIS SL PRN (20:30)
[2017-08-04] MEDS: BACLOFEN 10 MG TABLET PO SCH (20:30)
--- NOTE | 2017-08-04 20:30 | NUR ---
PRN ROBAXIN AND ZOFRAN ODT ADMINISTRATION Pt reports body aches 6/10 and nausea without vomiting. Safety measures in place. Call light within reach. Will continue to monitor.
--- NOTE | 2017-08-04 21:00 | NUR ---
KRISTYN FLORES ODT REASSESSMENT Pt reports nausea ceased, able to tolerable fluids and snacks. Safety measures in place. Call light within reach. Will continue to monitor.
--- NOTE | 2017-08-04 21:30 | NUR ---
KRISTYN MORENO REASSESSMENT Pt reports body aches improved to tolerable level. Safety measures in place. Call light within reach. Will continue to monitor.
[2017-08-04] MEDS: MAGNESIUM HYDROXIDE 30 ML LIQUID UDC PO PRN (23:08)
--- NOTE | 2017-08-04 23:08 | NUR ---
PRN MILK OF MAG AND MOTRIN ADMINISTRATION Pt reports constipation and headache. Safety measures in place. Call light within reach. Will continue to monitor.
[2017-08-05] VITALS: BP 121/52
--- NOTE | 2017-08-05 00:08 | NUR ---
PRN MILK OF MAG AND MOTRIN REASSESSMENT No BM at this time, will continue to monitor. Pt reports headache has ceased. Safety measures in place. Call light within reach. Will continue to monitor.
--- NOTE | 2017-08-05 04:00 | NUR ---
COWS/CIWA DEFERRED AND VITALS REFUSED Pt laying in bed with eyes closed, COWS/CIWA deferred, to be assessed when pt is awake per orders. Vitals refused. Respirations even and unlabored. Safety measures in place. Call light within reach. Will continue to monitor.
--- NOTE | 2017-08-05 07:14 | NUR ---
END OF SHIFT Pt is a 32 y/o female admitted on 08/01/17 for ETOH, benzo and opiate withdrawl. Pt is on a 5 day Ativan and Subutex taper, tolerating well. Pt presented with anxiety, agitation, difficulty thinking clearly, difficulty concentrating, flushed skin, sweats, chills, stomach cramps, nausea without vomiting, restlessness, difficulty falling asleep and staying asleep, body aches, headache, constipation, photosensitivity, irritability, disheveled appearance, and unkempt room. Pt is refusing side rail padding, educated risks and pt verbalized understanding. Pt verbalized feelings of AMA during shift r/t difficulty coping with negative emotions and cravings. Scheduled medications and PRN Robaxin, Zofran odt, Milk of Magnesium and Motrin administered, effective in S/S of withdrawal AEB COWS 14 and CIWA 23 lowered to COWS 13 and CIWA 16 during shift. Pt slept 6 hours. Intake 973 ml, void x 2, stool x 0. Safety measures in place. Call light within reach. Pts needs have been met. Endorsed to day shift nurse.
--- NOTE | 2017-08-05 07:35 | NUR ---
START OF SHIFT PT IS A 32 Y/O F ADMITTED ON 08/01/17 FOR MEDICALLY SUPERVISED ETOH, BENZO AND OPIATE WITHDRAWAL. PT IS PLACED ON AN 5 DAY ATIVAN AND SUBUTEX TAPER, TODAY BEING THE LAST DAY. LAST COWS 13 AND CIWA 16, IBUPROFEN, ROBAXIN, ZOFRAN, AND MOM PRNS GIVEN LAST NIGHT. PT SLEPT 6 HRS. RECEIVED PT A/OX4, RESPIRATIONS EVEN AND UNLABORED. PT APPEARS DISHEVELED AND ROOM IS UNKEMPT, PT PRESENTS ANXIETY, AGITATION, IRRITABILITY, RESTLESSNESS, HEADACHE, INTERMITTENT CHILLS AND SWEATING, CLAMMY SKIN, GENERALIZED BODY ACHES, FATIGUE, DYSPHORIA, ANHEDONIA, CONSTIPATION, STOMACH CRAMPS, NAUSEA, DIFFICULTY THINKING AND CONCENTRATING, AND TREMORS ARE NOTED. EDUCATED PT WITH TODAY'S PLAN OF CARE AND MED REGIMEN AND ENCOURAGED PT TO ATTEND GROUPS TO LEARN SKILLS TO MAINTAIN SOBRIETY. SIDE RAILS UPX2, BED IN LOW POSITION. CALL LIGHT WITHIN REACH. SAFETY MEASURES IN PLACE. WILL CONTINUE TO MONITOR.
[2017-08-05 08:00] VITALS: BP 104/61
[2017-08-05] MEDS: FOLIC ACID 1 MG TABLET PO SCH (08:46)
[2017-08-05] MEDS: DICYCLOMINE HCL 20 MG TABLET PO SCH ×3 (08:46→22:07)
[2017-08-05] MEDS: SPIRONOLACTONE 50 MG TABLET PO SCH (08:46)
[2017-08-05] MEDS: GABAPENTIN 300 MG CAPSULE PO SCH ×3 (08:46→22:07)
[2017-08-05] MEDS: MULTIVITAMINS,THERAPEUTIC TABLET PO SCH (08:46)
[2017-08-05] MEDS: THIAMINE HCL 100 MG TABLET PO SCH (08:47)
[2017-08-05] MEDS: BACLOFEN 10 MG TABLET PO SCH ×3 (08:47→22:07)
[2017-08-05] MEDS: IBUPROFEN 600 MG TABLET PO PRN (08:47)
--- NOTE | 2017-08-05 08:47 | NUR ---
PRN IBUPROFEN 600 MG PO PRN GIVEN FOR C/O HEADACHE AND GENERALIZED BODY ACHES 8/10 WITH FACIAL GRIMACING AND IRRITABILITY. WILL MONITOR AND REASSESS.
[2017-08-05] MEDS: CLONIDINE HCL 0.1 MG TABLET PO SCH ×3 (08:48→22:07)
[2017-08-05] MEDS: DOCUSATE SODIUM 250 MG CAPSULE PO SCH (08:48)
[2017-08-05] MEDS ORDERED: BUPRENORPHINE HCL 2 MG TAB.SUBL SL SCH (09:00)
[2017-08-05] MEDS ORDERED: LORAZEPAM 1 MG TABLET PO SCH (09:00)
--- NOTE | 2017-08-05 09:47 | NUR ---
REASSESSMENT PT IS IN ROOM DOING YOGA POSES ON THE FLOOR WITH A TOWEL. PT REPORTS IBUPROFEN WAS EFFECTIVE AND PAIN HAS DECREASED TO A 5/10.
[2017-08-05 12:00] VITALS: BP 94/55
[2017-08-05] MEDS ORDERED: GABA-534 PO (13:40)
[2017-08-05] MEDS ORDERED: DIPH50CA37 PO (13:40)
[2017-08-05] MEDS ORDERED: CLON0.1T14 PO (13:40)
[2017-08-05] MEDS ORDERED: METH-406 PO (13:40)
[2017-08-05] MEDS ORDERED: IBUP-1955 PO (13:40)
[2017-08-05] MEDS ORDERED: DICY20TA28 PO (13:40)
[2017-08-05] MEDS: KETOROLAC TROMETHAMINE 30 MG INJ IM PRN ×2 (15:34→22:07)
[2017-08-05] MEDS: METHOCARBAMOL 750 MG TABLET PO PRN (15:37)
[2017-08-05] MEDS: ONDANSETRON ODT 4 MG TAB.RAPDIS SL PRN (15:54)
[2017-08-05 16:30] VITALS: BP 102/55
--- NOTE | 2017-08-05 19:28 | NUR ---
END OF SHIFT PT HAS NOT ATTENDED GROUPS DURING SHIFT; PT STATES SHE HAS NOT BEEN FEELING WELL ENOUGH TO PARTICIPATE IN GROUPS AND ACTIVITIES AT THIS TIME. PT HAS BEEN GIVEN TORADOL, ZOFRAN, AND IBUPROFEN PRNS DURING SHIFT. LAST COWS 12 AND CIWA 14. ATE 50/75/75% OF MEALS. FLUID INTAKE 1750 ML, VOIDED X3, BM 0. SAFETY MEASURES IN PLACE. ENDORSEMENT GIVEN TO FLOAT OPERATOR NURSE.
--- NOTE | 2017-08-05 19:30 | NUR ---
START OF SHIFT Pt is a 32 y/o female admitted on 08/01/17 for ETOH, benzo and opiate withdrawal. Pt finished her 5 day Ativan and 5 day Subutex taper and is scheduled to be d/c tomorrow. Last COWS 12 and CIWA 14 and PRN Motrin, Toradol, Zofran and Robaxin administered during day shift. Upon assessment pt presents with anxiety, restlessness, agitation, headache, sweats, chills, nausea without vomiting, difficulty thinking clearly, difficulty concentrating, poor memory recall, difficulty falling and staying asleep, disheveled appearance, racing thoughts, loose thoughts, body aches, headache, constipation, flat affect, unkempt room and is withdrawn. Medications due. Safety measures in place. Call light within reach. Will continue to monitor. Addendum: 08/06/17 at 0011 by ERWIN FERREIRA RN Additional: Pt refuses side rail pads, provided education about risks, pt verbalized understanding.
[2017-08-05 20:00] VITALS: BP 108/76
[2017-08-05] MEDS: MAGNESIUM HYDROXIDE 30 ML LIQUID UDC PO PRN (22:14)
--- NOTE | 2017-08-05 22:14 | NUR ---
PRN TORADOL INJ AND MILK OF MAG ADMINISTRATION Pt reports pain 9/10 generalized body pain and headache. Pt reports no BM "in a few days." Safety measures in place. Call light within reach. Will continue to monitor.
--- NOTE | 2017-08-05 22:37 | NUR ---
PRN TORADOL INJ REASSESSMENT Pt reports pain improved to 4/10. Safety measures in place. Call light within reach. Will continue to monitor.
--- NOTE | 2017-08-05 23:14 | NUR ---
PRN MILK OF MAG REASSESSMENT Pt reports no BM at this time, will continue to monitor. Safety measures in place. Call light within reach.
--- NOTE | 2017-08-06 03:15 | NUR ---
PRN ROBAXIN AND ZOFRAN ODT ADMINISTRATION Pt reports body aches 8/10 and nausea without vomiting. Safety measures in place. Call light within reach. Will continue to monitor.
--- NOTE | 2017-08-06 03:45 | NUR ---
PRN MARK ODT REASSESSMENT Pt reports nausea improved, able to tolerable fluids. Safety measures in place. Call light within reach. Will continue to monitor.
[2017-08-06 04:00] VITALS: BP 88/55
--- NOTE | 2017-08-06 04:15 | NUR ---
KRISTYN MORENO REASSESSMENT Pt reports body aches improved to tolerable level. Safety measures in place. Call light within reach. Will continue to monitor.
[2017-08-06] MEDS: KETOROLAC TROMETHAMINE 30 MG INJ IM PRN ×2 (06:53→15:04)
--- NOTE | 2017-08-06 06:53 | NUR ---
PRN TORADOL INJ ADMINISTRATION Pt reports generalized body pain and headache 09/27. Safety measures in place. Call light within reach. Will continue to monitor.
--- NOTE | 2017-08-06 07:23 | NUR ---
PRN TORADOL INJ REASSESSMENT Pt reports pain decreased to 4/10. Safety measures in place. Call light within reach. Will continue to monitor.
--- NOTE | 2017-08-06 07:26 | NUR ---
END OF SHIFT Pt is a 32 y/o female admitted on 08/01/17 for ETOH, benzo and opiate withdrawal. Pt finished her 5 day Ativan and 5 day Subutex taper and is scheduled to be d/c today. Pt refuses side rail pads, provided education about risks, pt verbalized understanding. Pt presented with anxiety, restlessness, agitation, headache, sweats, chills, nausea without vomiting, difficulty thinking clearly, difficulty concentrating, poor memory recall, difficulty falling and staying asleep, disheveled appearance, racing thoughts, loose thoughts, body aches, headache, constipation, flat affect, unkempt room and was withdrawn. Scheduled medications and PRN Toradol, Milk of Mag, Robaxin and Zofran odt administered, effective in S/S of withdrawal as verbalized by pt. Last COWS 10 and CIWA 10. Pt slept 4 hours. Intake 1000 ml, void x 1, stool x 0. Safety measures in place. Call light within reach. Pts needs have been met. Endorsed to day shift nurse.
--- NOTE | 2017-08-06 07:42 | NUR ---
START OF SHIFT PT IS A 32 Y/O F ADMITTED ON 08/01/17 FOR MEDICALLY SUPERVISED ETOH, BENZO AND OPIATE WITHDRAWAL. PT HAS COMPLETED A 5 DAY ATIVAN AND SUBUTEX TAPER YESTERDAY. PT IS MEDICALLY CLEARED TO BE DISCHARGED. LAST COWS 10 AND CIWA 10, TORADOL, ROBAXIN, ZOFRAN, AND MOM PRNS GIVEN LAST NIGHT. PT SLEPT 5 HRS. RECEIVED PT A/OX4, RESPIRATIONS EVEN AND UNLABORED. PT IS DISHEVELED AND WHITE AN UNKEMPT ROOM, PT PRESENTS ANXIETY, AGITATION, IRRITABILITY, RESTLESSNESS, HEADACHE, INTERMITTENT CHILLS AND SWEATING, CLAMMY SKIN, GENERALIZED BODY ACHES, FATIGUE, DYSPHORIA, ANHEDONIA, CONSTIPATION, STOMACH CRAMPS, NAUSEA, DIFFICULTY THINKING AND CONCENTRATING, AND TREMORS ARE NOTED. ENCOURAGED PT TO ATTEND GROUPS TO LEARN SKILLS TO MAINTAIN SOBRIETY. SIDE RAILS UPX2, BED IN LOW POSITION. CALL LIGHT WITHIN REACH. SAFETY MEASURES IN PLACE. WILL CONTINUE TO MONITOR.
[2017-08-06 08:00] VITALS: BP 89/52
[2017-08-06] MEDS: CLONIDINE HCL 0.1 MG TABLET PO SCH ×2 (09:00→14:56)
[2017-08-06] MEDS: GABAPENTIN 300 MG CAPSULE PO SCH ×2 (09:38→14:56)
[2017-08-06] MEDS: BACLOFEN 10 MG TABLET PO SCH ×2 (09:38→14:56)
[2017-08-06] MEDS: MULTIVITAMINS,THERAPEUTIC TABLET PO SCH (09:38)
[2017-08-06] MEDS: FOLIC ACID 1 MG TABLET PO SCH (09:38)
[2017-08-06] MEDS: THIAMINE HCL 100 MG TABLET PO SCH (09:38)
[2017-08-06] MEDS: SPIRONOLACTONE 50 MG TABLET PO SCH (09:38)
[2017-08-06] MEDS: DOCUSATE SODIUM 250 MG CAPSULE PO SCH (09:38)
[2017-08-06] MEDS: DICYCLOMINE HCL 20 MG TABLET PO SCH ×2 (09:38→14:56)
[2017-08-06 12:00] VITALS: BP_SYST 96; BP_SYST 97; BP_DIAS 48; BP_DIAS 61
--- NOTE | 2017-08-06 15:00 | NUR ---
PRN TORADOL 30 MG IM AND MIRALAX PRNS GIVEN; PT STATED SHE WANTED TORADOL IN CONJUNCTION TO THE BACLOFEN AND STATED IT WORKS BETTER FOR HER. PT HAS TOLERATED IM INJECTION WELL.
[2017-08-06] MEDS: MIRALAX 17 GM POWD.PACK PO PRN (15:04)
--- NOTE | 2017-08-06 15:18 | NUR ---
DISCHARGE NOTE PT IS IN STABLE CONDITION, VS ARE WNL. PT IS A/OX4, RESPIRATIONS EVEN AND UNLABORED. PT HAS BEEN GIVEN D/C INSTRUCTIONS AND VERBALIZED UNDERSTANDING. LAST COWS 6 AND CIWA 7. AWARE OF PT DISCHARGE. PT HAS BEEN DISCHARGED TODAY 08/06/17 AT 1518 WITH ALL BELONGINGS, PRESCRIPTION AND DISCHARGE PAPERWORK. PT HAS PICKED UP BY [facility] AND HAS BEEN TAKEN TO [facility].
== END 2017-08-06 15:18 | DRG 895 ==
LOC: SRC 00:10
PROVIDERS: ADMIT Internal Medicine; ATTEND Internal Medicine
PROC: HZ2ZZZZ Detoxification Services for Substance Abuse Treatment (ICD-10-PCS; principal; 2017-08-01)
PROC: HZ51ZZZ Individual Psychotherapy for Substance Abuse Treatment, Behavioral (ICD-10-PCS; 2017-08-02)
DX: F10.232 Alcohol dependence with withdrawal with perceptual disturbance (principal); F13.232 Sedative, hypnotic or anxiolytic dependence with withdrawal with perceptual disturbance; Y90.8 Blood alcohol level of 240 mg/100 ml or more; F17.210 Nicotine dependence, cigarettes, uncomplicated; G47.00 Insomnia, unspecified; Z81.1 Family history of alcohol abuse and dependence; Z88.0 Allergy status to penicillin; Z81.8 Family history of other mental and behavioral disorders; Z86.74 Personal history of sudden cardiac arrest; G43.909 Migraine, unspecified, not intractable, without status migrainosus; E28.2 Polycystic ovarian syndrome; I15.9 Secondary hypertension, unspecified; L70.0 Acne vulgaris; F41.9 Anxiety disorder, unspecified; F32.9 Major depressive disorder, single episode, unspecified; F90.9 Attention-deficit hyperactivity disorder, unspecified type; E07.81 Sick-euthyroid syndrome; E05.90 Thyrotoxicosis, unspecified without thyrotoxic crisis or storm
CPT/HCPCS: 36415; 80307; 83690; 83735; 84443; 84703; 85025; 86580; 86592; 86705; 86803; 87340; 87806; G0480; J1885; Q0162; Q0163